=== PATIENT | female | born 1985 | race Two or more races ===

== ENCOUNTER 2021-02-01 08:33 | Outpatient (REF) | payer OTHER, SELFPAY ==
[2021-02-01 10:35] LABS: MANUAL DIFF FLAG NO
[2021-02-01 10:46] LABS: Basophils Absolute Auto 0.1 X10*3/uL (0.0-0.2); Basophils Percent Auto 0.9 % (0-2); Eosinophils Absolute Auto 0.3 X10*3/uL (0.0-0.4); Eosinophils Percent Auto 5.1 % (0-4); Hematocrit 36.6 % (37-47); Imm Gran Abs Auto 0.01 X10*3/uL (0.00-0.03); Imm Gran Pct Auto 0.2 % (0.0-0.4); Lymphocytes Absolute Auto 2.4 X10*3/uL (1.2-4.9); Lymphocytes Percent Auto 43.4 % (20-40); Mean Corpuscular HGB Conc 32.8 g/dl (31.0-35.0); Mean Corpuscular Hemoglobin 30.4 pg (27.0-33.0); Mean Corpuscular Volume 92.7 fL (80-98); Mean Platelet Volume 9.9 fL (9.4-12.3); Monocytes Absolute Auto 0.5 X10*3/uL (0.1-1.2); Monocytes Percent Auto 8.9 % (2-11); Neutrophils Absolute Auto 2.3 X10*3/uL (2.0-8.3); Neutrophils Percent Auto 41.5 % (45-73); Platelet Count 251 X10*3/uL (160-400); Red Blood Count 3.95 X10*6/uL (4.20-5.50); Red Cell Distribution Width 12.2 % (11.0-16.0); White Blood Count 5.5 X10*3/uL (4.8-10.8)
[2021-02-01 10:54] LABS: Estimated Average Glucose 88 mg/dL; Hemoglobin A1c % 4.7 %
[2021-02-01 11:20] LABS: Alanine Aminotransferase 21 U/L (0-31); Albumin Level 3.9 g/dL (3.5-5.0); Alkaline Phosphatase 57 U/L (39-117); Anion Gap 10 (12-20); Aspartate Amino Transferase 21 U/L (5-31); Bilirubin Total 0.3 mg/dL (0.0-1.0); Blood Urea Nitrogen 8 mg/dL (9-16); Calcium 8.8 mg/dL (8.4-10.2); Carbon Dioxide 27 mmol/L (22-29); Chloride 108 mmol/L (96-108); Cholesterol 187 mg/dL; Estimated Glomerular Filt Rate > 60; Glucose Fasting 89 mg/dL (60-99); HDL Cholesterol 44 mg/dL; LDL Cholesterol Calculated 130 mg/dl; Potassium 4.4 mmol/L (3.3-5.1); Sodium 141 mmol/L (135-145); Total Protein 6.6 g/dL (6.5-8.0); Triglycerides 67 mg/dL
[2021-02-01 11:41] LABS: TSH reflex Free T4 0.92 uIU/mL (0.32-4.0)
[2021-02-03 20:16] LABS: HPV mRNA E6/E7 rflx Not Detected (Not Detected)
== END 2021-02-01 08:34 | disposition home or self-care (01) ==
LOC: HO.LAB 08:33
PROVIDERS: Absent Provider Physician Assistant; PCP Physician Assistant; Visit Provider Obstetrics & Gynecology
DX: Z01.419 Encounter for gynecological examination (general) (routine) without abnormal findings (principal); Z13.1 Encounter for screening for diabetes mellitus; Z13.0 Encounter for screening for diseases of the blood and blood-forming organs and certain disorders involving the immune mechanism; Z13.220 Encounter for screening for lipoid disorders; Z13.29 Encounter for screening for other suspected endocrine disorder
CPT/HCPCS: 36415; 80053; 80061; 83036; 84443; 85025; 87624; 88142

== ENCOUNTER → 2022-02-03 08:30 | Outpatient (BNVA) | payer OTHER, BC, SELFPAY | PROVIDERS: Visit Provider Obstetrics & Gynecology | DX: Z13.89 Encounter for screening for other disorder (principal) ==

== ENCOUNTER 2022-02-21 08:30 | Outpatient (REF) | payer BC, SELFPAY ==
--- NOTE | ~2022-02-21 | US_ITS ---
EXAMINATION: US PELVIS CLINICAL INFORMATION: Right adnexal fullness COMPARISON: None TECHNIQUE: Ultrasound of the pelvis is performed using both transabdominal and transvaginal transducers along with Doppler. Transvaginal imaging is performed due to inadequate visualization transabdominally. FINDINGS: The uterus is anteverted and measures 9.3 x 2.9 x 5.7 cm in dimension. There is an IUD in the uterus in satisfactory position. The endometrium does not appear thickened measuring 0.4 cm. No focal uterine lesion is seen. The ovaries are normal-appearing. The right ovary measures 3.6 x 2.6 x 3 cm. The left ovary measures 2.6 x 1.3 x 2.4 cm. There is a 2.1 x 1.7 x 1.9 cm cyst or dominant follicle seen right ovary. There is no fluid in the pelvis. US/US pelvic and transvaginal IMPRESSION: IUD in the uterus satisfactory position. Normal-appearing ovaries.
== END 2022-02-21 08:31 | disposition home or self-care (01) ==
LOC: HO.HMGCX 08:30
PROVIDERS: Visit Provider Obstetrics & Gynecology
DX: N94.9 Unspecified condition associated with female genital organs and menstrual cycle (principal)
CPT/HCPCS: 76830; 76856

== ENCOUNTER → 2022-03-03 11:56 | Outpatient (BNVA) | payer BC, SELFPAY | PROVIDERS: Visit Provider Obstetrics & Gynecology | DX: Z13.89 Encounter for screening for other disorder (principal) ==

== ENCOUNTER → 2023-05-02 08:38 | Outpatient (BNVA) | payer BC, SELFPAY | PROVIDERS: PCP Physician Assistant; Visit Provider Obstetrics & Gynecology ==

== ENCOUNTER 2023-05-25 11:01 | Outpatient (REF) | payer BC, SELFPAY ==
--- NOTE | ~2023-05-25 | US_ITS ---
EXAMINATION: US PELVIS CLINICAL INFORMATION: Adnexal fullness LMP: None-IUD COMPARISON: Pelvic ultrasound 02/21/2022 TECHNIQUE: Ultrasound of the pelvis is performed using both transabdominal and transvaginal transducers along with Doppler. Transvaginal imaging is performed due to inadequate visualization transabdominally. FINDINGS: Uterus: The uterus is anteverted and measures 9.1 x 3.7 x 5.8 cm. No focal fibroid The endometrial thickness is 0.5 cm. The IUD appears in satisfactory position. Adnexa: Both ovaries are visualized. There is normal color flow to the adnexa. There is no ovarian torsion. There is no pelvic ascites or fluid collection. Right ovary measures 2.7 x 1.6 x 2.3 cm for a volume of 5.2 mL. The right ovary is normal in appearance. Left ovary measures 2.7 x 2.2 x 2.4 for a volume of 7.5 mL. A 2.1 x 1.7 x 2.1 cm simple dominant follicle is seen. No further follow-up is finding is recommended. US/US pelvic and transvaginal IMPRESSION: Normal pelvic ultrasound.
== END 2023-05-25 11:02 | disposition home or self-care (01) ==
LOC: HO.US 11:01
PROVIDERS: PCP Physician Assistant; Visit Provider Obstetrics & Gynecology
DX: N94.9 Unspecified condition associated with female genital organs and menstrual cycle (principal)
CPT/HCPCS: 76830; 76856

== ENCOUNTER 2023-06-07 15:41 | Outpatient (AMB) | payer BC, SELFPAY ==
[2023-06-07 15:45] VITALS: BP 118/70; BMI 28.8
--- NOTE | 2023-06-07 15:45 | A.OFFVIS_ITS ---
Intake Vital Signs 06/07/23 15:45 Height 5 ft Weight 147 lb 11.355 oz BMI 28.8 BP 118/70 Intake Visit Reasons: Ultra sound follow up Assistant Quality Manager Required: No Information Interpreted: non-clinical & clinical Accompanied by: Self / Same As Patient Allergies No Known Allergies [No Known Allergies*] Allergy (Verified 06/07/23 15:45) Is last menstrual period known: No HPI HPI Comments History of Present Illness Details Presenting for follow-up ultrasound regarding right adnexal fullness on pelvic exam. Ultrasound done showed the following: Uterus: The uterus is anteverted and measures 9.1 x 3.7 x 5.8 cm.? No focal fibroid The endometrial thickness is 0.5 cm. The IUD appears in satisfactory position. Adnexa: Both ovaries are visualized. There is normal color flow to the adnexa. There is no ovarian torsion.? There is no pelvic ascites or fluid collection. Right ovary measures 2.7 x 1.6 x 2.3 cm for a volume of 5.2 mL. The right ovary is normal in appearance. Left ovary measures 2.7 x 2.2 x 2.4 for a volume of 7.5 mL. A 2.1 x 1.7 x 2.1 cm simple dominant follicle is seen. No further follow-up is finding is recommended. [facility] Medical History Dysplasia of cervix, low grade (DES 1) Surgical History H/O LEEP History of ankle surgery History of section History of knee surgery Family History Father Cirrhosis Mother Ovarian cancer Diabetes Maternal Grandmother Heart disease CVD (cardiovascular disease) Maternal Aunt Breast cancer Social History Household Members: Spouse and Children Housing: House Alcohol intake: current Alcohol intake frequency: holidays/special occasions only Years Smoked: 20 e-Cigarette/Vaping Use: Currently Using Substance Use Type: Marijuana Current occupational status: employed Current occupation: [employer] Sexual orientation: Straight/Heterosexual Gender identity: Female Female Reproductive History Menstrual Age of Menarche: 9 control method: progestin IUCD Review of Systems Const All systems reviewed & are unremarkable except as noted in HPI and below Reports as per HPI and Reports no additional complaints GI Reports no additional complaints Reports no additional complaints Physical Exam Vital Signs: Last Vital Signs BP 118/70 06/07/23 15:45 BMI result Body Mass Index 28.8 Assessment & Plan Assessment & Plan (1) Adnexal fullness: Comment: On the right side Code(s): N94.9 - Unspecified condition associated with female genital organs and menstrual cycle Plan: Discussed with the patient the results of the ultrasound being unremarkable. The patient was reassured. All questions answered, the patient verbalized understanding Coding Level of Care Code Est Pt Level 3 (01937) Diagnoses Adnexal fullness N94.9
== END 2023-06-07 15:46 | disposition home or self-care (01) ==
LOC: HO.HWS 15:41
PROVIDERS: PCP Physician Assistant; Visit Provider Obstetrics & Gynecology
DX: N94.9 Unspecified condition associated with female genital organs and menstrual cycle (principal)
CPT/HCPCS: 99213

== ENCOUNTER → 2023-06-07 15:41 | Outpatient (BNVA) | payer BC, SELFPAY | PROVIDERS: PCP Physician Assistant; Visit Provider Obstetrics & Gynecology ==

== ENCOUNTER 2023-06-20 15:53 | Outpatient (AMB) | payer BC, SELFPAY ==
--- NOTE | 2023-06-20 15:54 | MHC.PC.OV ---
Vital Signs 06/20/23 15:55 Height 5 ft Weight 154 lb 6 oz BMI 30.1 BP 110/74 Blood Pressure Location Rt brachial Position Sitting Pulse 70 Pulse Source Pulse Oximeter Pulse Oximetry (%) 98 Intake Visit Reasons: PHY-Gastro Intake Note: pt is here for physical - requesting gastro referral Sampler First Required: No Accompanied by: Self / Same As Patient Allergies No Known Allergies [No Known Allergies*] Allergy (Verified 06/20/23 16:17) Medication List - Last Reconciled 06/20/23 by Andrea Samayoa PA-C levonorgestrel (Mirena) intrauterine multivitamin 1 tab PO DAILY Tobacco use date assessed: 06/20/23 Dental Screening Dental Screen Date: 06/20/23 Did you have a dental visit in the last 12 months?: Yes Did you have a dental problem in the last 6 months where you did not have access to dental care?: No Was dental information given to patient?: Patient has dentist HPI PHY-Gastro HPI Details Patient is a 37-year-old female here today for routine annual physical. Patient has a past medical history significant for MDD, ADHD. Patient followed by generator man and has recent reports of pelvic pain. Ultrasound of pelvic area without any abnormality. Also she reports a 9 month history of epigastric pain and sensitivity to palpation. Has tried [id number] antacids without much relief. She denies any association with foods. Has tried topical analgesics like lidocaine over her epigastrium though has not been affective. She denies any trauma to her epigastrium or chronic coughing. .. ADHD: Continues to have difficulties with concentration and focus in her personal life and during her work. She is somewhat interested in starting medication to help her focus. Also does suffer from major depressive disorder though feels that this has been stable. Not interested in cognitive behavioral therapy at this time. Vaccines: Up-to-date with COVID vaccine, tetanus vaccine and flu vaccine Mammogram: Mammogram has been ordered by her generator man. [facility] Medical History Dysplasia of cervix, low grade (DES 1) Surgical History H/O LEEP History of ankle surgery History of section History of knee surgery Family History Father Cirrhosis Mother Ovarian cancer Diabetes Maternal Grandmother Heart disease CVD (cardiovascular disease) Maternal Aunt Breast cancer Social History (Updated 06/20/23 @ 16:23 by Andrea Samayoa PA-C) Household Members: Spouse and Children Housing: House Alcohol intake: current Alcohol intake frequency: holidays/special occasions only Alcohol type: beer and wine Patient Tobacco Use Status: Current everyday Tobacco user Tobacco use type: Smokeless Tobacco (vape ) Years Smoked: 20 e-Cigarette/Vaping Use: Currently Using Substance Use Type: Marijuana Current occupational status: employed Current occupation: [employer] Sexual orientation: Straight/Heterosexual Gender identity: Female Cognitive needs: No Hearing needs: No Vision needs: No Female Reproductive History Menstrual Age of Menarche: 9 Questionnaire PHQ-9 Over the last 2 weeks, how often have you been bothered by any of the following problems? 1. Little interest or pleasure in doing things: several days 2. Feeling down, depressed, or hopeless: several days 3. Trouble falling or staying asleep, or sleeping too much: nearly every day 4. Feeling tired or having little energy: nearly every day 5. Poor appetite or overeating: nearly every day 6. Feeling bad about yourself - or that you are a failure or have let yourself or your family down: more than half the days 7. Trouble concentrating on things, such as reading the newspaper or watching television: nearly every day 8. Moving or speaking so slowly that other people could have noticed. Or the opposite - being so fidgety or restless that you have been moving around a lot more than usual: nearly every day 9. Thoughts that you would be better off or of hurting yourself in some way: not at all Total score: 19 Depression Screening Interpretation: Positive 12133 - PHQ-9 Billing: Yes Source: Developed by Drs. Brett Arevalo, Kinjal Johnson, David Collins and colleagues, with an educational cristóbal from [employer]. Thrive Questionnaire Date Thrive assessed: 06/20/23 I am a: Patient What is your living situation today?: I have a steady place to live Within the past 12 months, did the food you bought not last and you didn't have the money to get more?: Never true Within the past 12 months, did you worry whether your food would run out before you got money to buy more?: Never true Do you have trouble paying for medicines?: No Do you have trouble getting transportation to medical appointments?: No Do you have trouble paying your heating and electricity bill?: No Do you have trouble taking care of your child, family member or friend?: No Do you have trouble with day-to-day activities such as bathing, preparing meals, shopping, managing finances, etc.?: No Are you currently unemployed and looking for a job?: No Are you interested in more education?: No Please select the resources that you would like help with: None Currently or been in a relationship where the following occur: no concerns reported ANGELICA-7 AMB Questionnaire ANGELICA-7 Date ANGELICA - 7 assessed: 06/20/23 Feeling nervous, anxious, or on edge: 1 = Several days Not being able to stop or control worryin = More than half the days Worrying too much about different things: 3 = Nearly every day Trouble relaxin = Not at all Being so restless that it is hard to sit still: 3 = Nearly every day Becoming easily annoyed or irritable: 1 = Several days Feeling afraid as if something awful might happen: 0 = Not at all Total ANGELICA-7 score (0-4 normal; 5-9 mild; 10-14 moderate; 15-21 severe): 10 Source: Developed by Drs. Brett Arevalo, Kinjal Johnson, David Collins and colleagues, with an educational cristóbal from [employer]. ANGELICA-7 Assessment Billing ANEGLICA-7 Assessment Tool: ANGELICA-7 Assessment 08316 Review of Systems Const Denies body aches, Denies chills, Denies excessive sweating, Denies fatigue, Denies fever(s) and Denies headache(s) Eyes Denies blurry vision ENT Denies dysphagia, Denies vertigo, Denies dizziness, Denies headache(s), Denies hearing loss and Denies tinnitus Card Denies chest pain, Denies chest pain with activity, Denies syncope, Denies irregular heart rhythm and Denies dyspnea Resp Denies chest congestion, Denies cough, Denies hemoptysis, Denies dyspnea and Denies wheezing GI Denies abdominal pain, Denies melena, Denies hematochezia, Denies coffee ground emesis, Denies dysphagia, Denies diarrhea, Denies nausea and Denies vomiting Denies urinary frequency, Denies dysuria, Denies urinary hesitancy and Denies urinary urgency Musc Denies arthralgias, Denies limited range of motion, Denies muscle cramps and Denies muscle weakness Skin/Breast Denies rash and Denies skin ulcer Neuro Denies Abnormal speech present, Denies confusion, Denies vertigo, Denies dizziness, Denies syncope, Denies headache(s), Denies memory loss and Denies seizure-like activity Psych Denies anxiety, Denies confusion, Denies depression, Denies memory loss, Denies panic attacks and Denies paranoia Endo Denies excessive sweating, Denies fatigue, Denies flushing, Denies polydipsia and Denies polyuria Aller/Immun Denies wheezing Physical exam (Primary Care) Vital Signs: Last Vital Signs Pulse 70 06/20/23 15:55 BP 110/74 06/20/23 15:55 Pulse Ox 98 06/20/23 15:55 BMI result Body Mass Index 30.1 Tobacco/Smoking Status: Tobacco use Status Tobacco use date assessed 06/20/23 06/20/23 15:57 Patient Tobacco Use Status Current everyday Tobacco 06/20/23 16:23 Tobacco use type Smokeless Tobacco (vape ) 06/20/23 16:23 e-Cigarette/Vaping Use Currently Using 06/20/23 16:23 PHQ-9: PHQ-9 Score PHQ-9: Total score 19 06/20/23 16:20 Depression Screening Interpretation: Positive Thrive Assessment: Date of Thrive Assessment Date Thrive assessed 06/20/23 06/20/23 16:05 Currently or been in a relationship where the following occur: no concerns reported Const General: cooperative, comfortable, no acute distress, alert and awake; No confusion Orientation/consciousness: oriented to person, oriented to place, patient oriented x3 and No confusion HENMT Head: Yes normocephalic Ears: external ears normal and TM's normal bilaterally Face and sinus: No sinus tenderness Mouth: Normal oral and palatal mucosa present and tongue normal Teeth and gingiva: dentition normal and gingiva normal Throat: Yes posterior oropharynx normal, Yes tonsils normal and Yes uvula midline Eyes Conjunctivae: conjunctivae normal Sclerae: sclerae normal Pupils: Equal, round and reactive pupils present EOM: EOMs intact bilaterally Direct Ophthalmoscopy: No no photophobia Neck Neck: Yes no lymphadenopathy, No tender and Yes no JVD Thyroid: Thyroid normal Carotids: no bruits Chest Chest palpation & inspection: no tenderness Resp Effort & Inspection: normal respiratory effort, no audible wheezes, not labored and no stridor Auscultation: no crackles, no rales, no rhonchi and no wheezes Cardio Jugular venous distension: no JVD Rate: regular rate, not bradycardic and not tachycardic Rhythm: regular rhythm Bruits: no carotid bruits Peripheral pulses: Peripheral pulses 2+ throughout GI Other: TENDER TO LIGHT PALPATION OVER THE ENTIRE UPPER ABDOMINAL QUADRANT Inspection: Yes normal to inspection, No abdominal wall ecchymosis and No visible herniation Palpation (GI): Soft to palpation, Tenderness to palpation present (GI), no guarding, not rigid and No hepatosplenomegaly present Auscultation: normoactive bowel sounds General: Yes no CVA tenderness Back/Spine/Pelvis Back: no CVA tenderness and No back tenderness Cervical Spine: cervical ROM normal Thoracic/Lumbar Spine: thoracic and lumbar spine normal to inspection, straight leg raise negative bilaterally, No thoraco-lumbar ROM limited and No lumbar spinal tenderness Skin Lesions: no lesions Rashes: no rashes Wounds: no wounds Neuro General: oriented to person, oriented to place, patient oriented x3, CN's II-XI intact bilaterally and No confusion Cranial nerves: Yes Equal, round and reactive pupils present and Yes Normal accommodation reflex present Cognition (Neuro): normal cognition Speech: No Abnormal speech present Gait exam (Neuro): Normal gait present Motor exam (neuro): 5/5 motor strength present throughout Extrem Right upper extremity: full ROM; no cyanosis Left upper extremity: full ROM; no cyanosis Right lower extremity: no edema Left lower extremity: no edema Psych Appearance: grossly normal Mental Status: mental status grossly normal Affect: normal affect Attitude: cooperative Thought process: Normal thought process present Assessment and Plan Assessment & Plan (1) Annual physical exam: Code(s): Z00.00 - Encounter for general adult medical examination without abnormal findings (2) MDD (major depressive disorder), recurrent episode, mild: Code(s): F33.0 - Major depressive disorder, recurrent, mild Plan: Patient's PHQ-9 score positive for depression which has been existing condition for her. Not interested in speaking with a mental therapist at this time. She is interested in being treated for ADD (3) ADHD (attention deficit hyperactivity disorder), inattentive type: Code(s): F90.0 - Attention-deficit hyperactivity disorder, predominantly inattentive type Plan: Patient willing to trial Strattera for her ADHD disorder. Will follow-up in 4 weeks to evaluate effectiveness of medication (4) Epigastric abdominal pain: Code(s): R10.13 - Epigastric pain Plan: Patient reports and 9 month history of epigastric pain and discomfort even to touch. She has tried changing her diet and use of Prilosec without much relief. She is interested in getting an endoscopy. Will send for ultrasound of abdomen to evaluate for any gallbladder or evidence of gastritis Orders: Orders US abdomen complete 06/20/23 R10.13 - Epigastric pain Comprehensive [place]. Panel Fast 06/20/23 Z13.1 - Encounter for screening for diabetes mellitus Lipase 06/20/23 R10.13 - Epigastric pain Complete Blood Count no Diff 06/20/23 Z13.1 - Encounter for screening for diabetes mellitus Referrals Gastroenterology Referral R10.13 - Epigastric pain Medications: New nicotine (polacrilex) 2 mg buccal Q2H 15 days PRN 110 ea 0RF nicotine cravings F17.200 - Nicotine dependence, unspecified, uncomplicated atomoxetine (Strattera) 40 mg PO DAILY 30 days 30 caps 0RF F90.0 - Attention-deficit hyperactivity disorder, predominantly inattentive type Coding Level of Care Code Est Pt Prev Care 18-39y(09970) Diagnoses Annual physical exam Z00.00 MDD (major depressive disorder), recurrent episode, mild F33.0 ADHD (attention deficit hyperactivity disorder), inattentive type F90.0 Epigastric abdominal pain R10.13 Additional Codes ANGELICA-7 Assessment Billing - ANGELICA-7 Assessment Tool: ANGELICA-7 Assessment 40193 ([id number])
[2023-06-20 15:55] VITALS: BP 110/74; PULSE 70; O2SAT 98; BMI 30.1
== END 2023-06-20 16:51 | disposition home or self-care (01) ==
PROVIDERS: Visit Provider Physician Assistant
DX: Z00.00 Encounter for general adult medical examination without abnormal findings (principal); F33.0 Major depressive disorder, recurrent, mild; F90.0 Attention-deficit hyperactivity disorder, predominantly inattentive type; R10.13 Epigastric pain
CPT/HCPCS: 99395

== ENCOUNTER 2023-06-21 08:38 | Outpatient (REF) | payer SELFPAY ==
[2023-06-21 09:43] LABS: Hematocrit 36.6 % (37.0-47.0); Hemoglobin 12.1 g/dl (12.0-16.0); Mean Corpuscular HGB Conc 33.1 g/dl (31.0-35.0); Mean Corpuscular Hemoglobin 30.7 pg (27.0-33.0); Mean Corpuscular Volume 92.9 fL (80.0-98.0); Mean Platelet Volume 9.6 fL (9.4-12.3); Platelet Count 253 X10*3/uL (160-400); Red Blood Count 3.94 X10*6/uL (4.20-5.50); Red Cell Distribution Width 12.2 % (11.0-16.0); White Blood Count 4.5 X10*3/uL (4.8-10.8)
[2023-06-21 10:41] LABS: Alanine Aminotransferase 17 U/L (0-31); Albumin Level 3.7 g/dL (3.5-5.0); Alkaline Phosphatase 55 U/L (39-117); Anion Gap 10 (12-20); Aspartate Amino Transferase 17 U/L (5-31); Bilirubin Total 0.6 mg/dL (0.0-1.0); Blood Urea Nitrogen 8 mg/dL (9-16); Carbon Dioxide 26 mmol/L (22-29); Chloride 108 mmol/L (96-108); Estimated Glomerular Filt Rate > 60; Glucose Fasting 82 mg/dL (60-99); Lipase 17 U/L (8-78); Potassium 3.9 mmol/L (3.3-5.1); Sodium 140 mmol/L (135-145); Total Protein 6.7 g/dL (6.5-8.0)
== END 2023-06-21 08:39 | disposition home or self-care (01) ==
LOC: HO.LAB 08:38
PROVIDERS: PCP Physician Assistant; Visit Provider Physician Assistant
DX: Z13.1 Encounter for screening for diabetes mellitus (principal); R10.13 Epigastric pain
CPT/HCPCS: 36415; 80053; 83690; 85027

== ENCOUNTER 2023-07-18 08:57 | Outpatient (REF) | payer BC, SELFPAY ==
--- NOTE | ~2023-07-18 | US_ITS ---
EXAMINATION: US ABDOMEN COMPLETE CLINICAL INFORMATION: Epigastric pain. COMPARISON: None available. TECHNIQUE: Real-time imaging of the abdominal viscera. FINDINGS: PANCREAS: Normal. ABDOMINAL AORTA: The proximal, mid, and distal segments are normal in caliber. INFERIOR VENA CAVA: Visualized portions are normal. LIVER: The liver is normal in size. The liver contour is normal. Liver echotexture is increased. No focal hepatic lesion. There is no intrahepatic biliary duct dilatation seen. GALLBLADDER: Small 4 mm echogenic density adjacent to the gallbladder wall suggestive of a polyp. The gallbladder is physiologically distended without evidence of stones, sludge, wall thickening or pericholecystic fluid. COMMON BILE DUCT: Normal in caliber measuring 0.22 cm in diameter. RIGHT KIDNEY: Small 5 mm cyst in the midpole. No imaging follow-up recommended. Question small 2 mm renal stones in the midpole. No hydronephrosis The kidney measures 9.2 cm in maximum dimension. LEFT KIDNEY: 1.3 x 1.8 x 1.9 cm minimally complex cyst in the upper pole with septation. 0.9 x 1 1.2 x 1 cm simple cyst in the upper pole. No imaging follow-up recommended. Question 3 to 4 mm stone in the upper pole. No hydronephrosis. The kidney measures 9.5 cm in maximum dimension. SPLEEN: Normal. The spleen measures 9.7 cm in maximum dimension. FREE FLUID: None. US/US abdomen complete IMPRESSION: Echogenic liver probably representing fatty infiltration. Small gallbladder wall polyp. Question small bilateral renal stones.
== END 2023-07-18 08:58 | disposition home or self-care (01) ==
LOC: HO.HMGCX 08:57
PROVIDERS: PCP Physician Assistant; Visit Provider Physician Assistant
DX: R10.13 Epigastric pain (principal)
CPT/HCPCS: 76700

== ENCOUNTER 2023-07-25 14:15 | Outpatient (AMB) | payer BC, SELFPAY ==
--- NOTE | 2023-07-25 14:18 | A.OFFPC_ITS ---
Vital Signs 07/25/23 14:19 Height 5 ft Weight 146 lb 6 oz BMI 28.6 BP 100/58 L Blood Pressure Location Lt brachial Position Sitting Respiration 16 Pulse 80 Pulse Source Pulse Oximeter Pulse Oximetry (%) 99 Oxygen Delivery Method Room Air Intake Visit Reasons: f/u ADD Intake Note: Patient is here to follow up on ADD. Network Systems Analyst Required: No Allergies No Known Allergies [No Known Allergies*] Allergy (Verified 07/25/23 14:28) Medication List - Last Reconciled 07/25/23 by Andrea Samayoa PA-C atomoxetine (Strattera) 40 mg PO DAILY 30 days levonorgestrel (Mirena) intrauterine multivitamin 1 tab PO DAILY nicotine (polacrilex) 2 mg buccal Q2H PRN 15 days Tobacco use date assessed: 06/20/23 Dental Screening Dental Screen Date: 07/25/23 Did you have a dental visit in the last 12 months?: No Did you have a dental problem in the last 6 months where you did not have access to dental care?: No Was dental information given to patient?: Yes HPI f/u ADD HPI Details Patient is a 37-year-old female here today for a follow up visit. . Patient has a past medical history significant for MDD, ADHD. Epigastric pain: Also she reports a 9 month history of epigastric pain and sensitivity to palpation. Has tried [id number] antacids without much relief. She does admit some association with foods causing increase epigastric pain.. Has tried topical analgesics like lidocaine over her epigastrium though has not been affective. She denies any trauma to her epigastrium or chronic coughing. Has gotten ultrasound of abdomen which did show a gallbladder polyp and evidence consistent fatty liver disease. Has upcoming appointment with [facility]. PLAN: Will try PPI for signs symptoms consistent with gastritis. .. ADHD: Has started Strattera for ADD which she feels has been helping her with some concentration and focus on her job tasks. She unfortunately reports side effect of nausea which has been tolerable and likely related to GERD. [facility] Medical History Dysplasia of cervix, low grade (DES 1) Surgical History H/O LEEP History of section History of knee surgery History of ankle surgery Family History Father Cirrhosis Mother Ovarian cancer Diabetes Maternal Grandmother Heart disease CVD (cardiovascular disease) Maternal Aunt Breast cancer Social History Household Members: Spouse and Children Housing: House Alcohol intake: current Alcohol intake frequency: holidays/special occasions only Alcohol type: beer and wine Patient Tobacco Use Status: Current everyday Tobacco user Tobacco use type: Smokeless Tobacco (vape ) Years Smoked: 20 e-Cigarette/Vaping Use: Currently Using Substance Use Type: Marijuana Current occupational status: employed Current occupation: [employer] Sexual orientation: Straight/Heterosexual Gender identity: Female Cognitive needs: No Hearing needs: No Vision needs: No Female Reproductive History Menstrual Age of Menarche: 9 Questionnaire Thrive Questionnaire Date Thrive assessed: 06/20/23 ANGELICA-7 AMB Questionnaire ANGELICA-7 Date ANGELICA - 7 assessed: 06/20/23 Source: Developed by Drs. Brett Arevalo, Kinjal Johnson, David Collins and colleagues, with an educational cristóbal from [employer]. Review of Systems Const Denies headache(s) Eyes Denies loss of vision ENT Denies vertigo, Denies dizziness, Denies headache(s) and Denies sore throat Card Denies chest pain, Denies leg edema and Denies lightheadedness Resp Denies cough, Denies hemoptysis and Denies wheezing GI Details: + epigastric pain Reports abdominal pain, Denies melena, Denies constipation, Denies diarrhea, Reports nausea and Denies vomiting Denies urinary frequency, Denies dysuria and Denies urinary urgency Musc Denies arthralgias, Denies joint swelling, Denies numbness and Denies tingling Neuro Denies Abnormal speech present, Denies behavioral changes, Denies vertigo, D enies dizziness, Denies headache(s), Denies loss of vision, Denies memory loss, Denies numbness and Denies tingling Psych Denies anxiety, Denies behavioral changes, Denies depression, Denies memory loss and Denies panic attacks [place]coe/Lymph Denies easy bleeding and Denies easy bruising Aller/Immun Denies wheezing Physical exam (Primary Care) Vital Signs: Last Vital Signs Pulse 80 07/25/23 14:19 Resp 16 07/25/23 14:19 BP 100/58 L 07/25/23 14:19 Pulse Ox 99 07/25/23 14:19 Oxygen Delivery Method Room Air 07/25/23 14:19 BMI result Body Mass Index 28.6 Tobacco/Smoking Status: Tobacco use Status Tobacco use date assessed 06/20/23 07/25/23 14:18 Patient Tobacco Use Status Current everyday Tobacco 07/25/23 14:18 Tobacco use type Smokeless Tobacco (vape ) 07/25/23 14:18 e-Cigarette/Vaping Use Currently Using 07/25/23 14:18 Thrive Assessment: Date of Thrive Assessment Date Thrive assessed 06/20/23 07/25/23 14:18 Const General: healthy appearing, no acute distress, alert and awake Nutritional Appearance: well nourished Orientation/consciousness: oriented to person, oriented to place and oriented to time HENMT Ears: TM's normal bilaterally General nose exam: Normal nasal mucous membranes and turbinates present Eyes Conjunctivae: conjunctivae normal Sclerae: sclerae normal Pupils: Equal, round and reactive pupils present Neck Neck: Yes no lymphadenopathy and Yes no JVD Thyroid: Thyroid normal Carotids: no bruits Resp Effort & Inspection: normal respiratory effort and not tachypneic Auscultation: no crackles, no rales, no rhonchi and no wheezes Cardio Rate: regular rate Rhythm: regular rhythm Heart sounds: no murmurs and normal S1 and S2 GI Palpation (GI): Soft to palpation, nontender, no hepatomegaly and no splenomegaly Auscultation: normal bowel sounds Skin General skin exam: no rashes or lesions noted and dry skin Neuro General: oriented to person, oriented to place and oriented to time Cranial nerves: Yes Equal, round and reactive pupils present Speech: No Abnormal speech present Gait exam (Neuro): Normal gait present Motor exam (neuro): no tremor noted Extrem Right upper extremity: full ROM Left upper extremity: full ROM Right lower extremity: full ROM; no edema Left lower extremity: full ROM; no edema Psych Mental Status: mental status grossly normal Speech and movement: Normal speech and movement present Affect: normal affect Attitude: cooperative Thought process: Normal thought process present Assessment and Plan Assessment & Plan (1) ADHD (attention deficit hyperactivity disorder), inattentive type: Code(s): F90.0 - Attention-deficit hyperactivity disorder, predominantly inattentive type Plan: Patient has been started on 40 mg of Strattera which has been somewhat effective for her attention and focus. Does report some side effect of nausea after she takes the medication. She is willing to increase dose of Strattera for better results thus will send in 80 mg Strattera. Patient will follow-up via phone or portal on effectiveness of the medication. (2) Epigastric abdominal pain: Code(s): R10.13 - Epigastric pain Plan: Patient reports and 9 month history of epigastric pain and discomfort even to touch. She does report some associations of her epigastric pain getting worse with food. Will try PPI therapy She is interested in getting an endoscopy and has upcoming appointment with gastroenterology. Ultrasound of abdomen did show a gallbladder wall polyp and a few simple kidneys cyst. (3) GERD (gastroesophageal reflux disease): Code(s): K21.9 - Gastro-esophageal reflux disease without esophagitis Qualifiers: Esophagitis presence: without esophagitis Qualified Code(s): K21.9 - Gastro-esophageal reflux disease without esophagitis Plan: As above patient signs symptoms somewhat consistent with gastritis. Again will trial PPI therapy. Advised on reducing gastric irritant foods in her diet. Medications: New omeprazole 20 mg PO DAILY 14 days 14 caps 0RF K21.9 - Gastro-esophageal reflux disease without esophagitis atomoxetine (Strattera) 80 mg PO DAILY 30 days 30 caps 1RF F90.0 - Attention- deficit hyperactivity disorder, predominantly inattentive type Discontinued atomoxetine (Strattera) Discontinued Reason: Doctor's Order 40 mg PO DAILY 30 days 30 caps 0RF F90.0 - Attention-deficit hyperactivity disorder, predominantly inattentive type Coding Level of Care Code Est Pt Level 4 (66026) Diagnoses ADHD (attention deficit hyperactivity disorder), inattentive type F90.0 Epigastric abdominal pain R10.13 Gastroesophageal reflux disease without esophagitis K21.9 Esophagitis presence: without esophagitis
[2023-07-25 14:19] VITALS: BP 100/58; PULSE 80; RESP 16; O2SAT 99; BMI 28.6
== END 2023-07-25 14:48 | disposition home or self-care (01) ==
PROVIDERS: PCP Physician Assistant; Visit Provider Physician Assistant
DX: F90.0 Attention-deficit hyperactivity disorder, predominantly inattentive type (principal); R10.13 Epigastric pain; K21.9 Gastro-esophageal reflux disease without esophagitis
CPT/HCPCS: 99214

== ENCOUNTER 2023-08-08 14:59 | Outpatient (AMB) | payer BC, SELFPAY ==
--- NOTE | 2023-08-08 15:03 | MHC.OFFVIS ---
Intake Vital Signs 08/08/23 15:05 Height 5 ft Weight 147 lb 11.355 oz BMI 28.8 BP 118/67 Blood Pressure Location Lt brachial Position Sitting Pulse 82 Intake Visit Reasons: Epigastric pain Intake Note: Britta presents in the office as a new patient for epigastric pains. CC: She has been dealing with pains in her abdomen, she has been having a feeling klike air and bloating in her stomach. Her belches have been gassy and it keeps getting worse. She has always had stomach pains but it has gotten worst over the past year. She has no appetite because of this. She has irregular BMs - sometimes she will have constipation and some day she will have diarrhea. Allergies No Known Allergies [No Known Allergies*] Allergy (Verified 08/08/23 15:06) HPI Epigastric pain HPI Details 38-year-old female with past medical history of an MDD, ADHD, epigastric discomfort are and GERD is here for initial consultation. Patient was sent to us by her PCP. Patient reports that she has been dealing with epigastric discomfort postprandially. Patient reports that no matter what she eats she will have epigastric pain and bloating. Patient is reporting that she has been taking omeprazole, however states that it was not helping her so she was not taking it. Patient states that she is not moving her bowels well. [facility] Medical History GERD (gastroesophageal reflux disease) Fatty liver Vapes nicotine containing substance Migraine Depression ADHD Dysplasia of cervix, low grade (DES 1) Surgical History H/O LEEP History of section History of knee surgery History of ankle surgery Family History Father Cirrhosis Mother Ovarian cancer Diabetes Maternal Grandmother Heart disease CVD (cardiovascular disease) Maternal Aunt Breast cancer Social History Household Members: Spouse and Children Housing: House Alcohol intake: current Alcohol intake frequency: a few times a month Alcohol type: beer and wine Patient Tobacco Use Status: Current everyday Tobacco user Tobacco use type: Smokeless Tobacco (vape ) Years Smoked: 20 e-Cigarette/Vaping Use: Currently Using Substance Use Type: Marijuana Current occupational status: employed Current occupation: [employer] Sexual orientation: Straight/Heterosexual Gender identity: Female Cognitive needs: No Hearing needs: No Vision needs: No Female Reproductive History Menstrual Age of Menarche: 9 Review of Systems Const Denies weight gain and Denies weight loss ENT Reports no additional complaints, Denies dysphagia and Denies odynophagia Card Reports no additional complaints Resp Reports no additional complaints GI Reports abdominal pain (epigastric), Denies belching, Denies melena, Reports bloating, Denies change in bowel habits, Reports constipation, Denies dysphagia, Denies excessive flatus, Denies dyspepsia, Reports heartburn, Denies diarrhea, Reports loose stools, Denies nausea, Denies odynophagia and Denies vomiting Reports no additional complaints Musc Reports no additional complaints Neuro Reports no additional complaints Psych Reports no additional complaints Endo Reports no additional complaints Physical Exam Vital Signs: Last Vital Signs Pulse 82 08/08/23 15:05 BP 118/67 08/08/23 15:05 BMI result Body Mass Index 28.8 Const General: healthy appearing, no acute distress and well developed Nutritional Appearance: well nourished Orientation/consciousness: patient oriented x3 HEENT Head: Yes normal to inspection, Yes normocephalic and Yes atraumatic Face and sinus: Yes normal facial exam Mouth: Normal oral and palatal mucosa present Throat: Yes posterior oropharynx normal, Yes tonsils normal and Yes uvula midline Eyes General: appearance normal, both eyes and all related structures Neck Neck: Yes normal visual inspection, Yes full ROM and Yes trachea midline Thyroid: Thyroid normal Resp Effort & Inspection: normal respiratory effort, able to speak in complete sentences, no tracheal deviation and symmetric chest movement Auscultation: clear to auscultation bilaterally Cardio Rate: regular rate Heart sounds: S1 normal heart sound present and S2 normal heart sound present GI Inspection: Yes normal to inspection and No distended Palpation (GI): Soft to palpation, not firm, nontender and No hepatosplenomegaly present Auscultation: normal bowel sounds General: Yes no CVA tenderness Back/Spine/Pelvis Back: no CVA tenderness Skin General skin exam: elasticity normal, turgor normal and dry skin Neuro General: patient oriented x3 Psych Appearance: grossly normal Mental Status: mental status grossly normal Results Reviewed Results Reviewed: ABDOMINAL ULTRASOUND 07/18/2023 FINDINGS: PANCREAS: Normal. ABDOMINAL AORTA: The proximal, mid, and distal segments are normal in caliber. INFERIOR VENA CAVA: Visualized portions are normal. LIVER: The liver is normal in size. The liver contour is normal. Liver echotexture is increased. No focal hepatic lesion. There is no intrahepatic biliary duct dilatation seen. GALLBLADDER: Small 4 mm echogenic density adjacent to the gallbladder wall suggestive of a polyp. The gallbladder is physiologically distended without evidence of stones, sludge, wall thickening or pericholecystic fluid. COMMON BILE DUCT: Normal in caliber measuring 0.22 cm in diameter. RIGHT KIDNEY: Small 5 mm cyst in the midpole. No imaging follow-up recommended. Question small 2 mm renal stones in the midpole. No hydronephrosis The kidney measures 9.2 cm in maximum dimension. LEFT KIDNEY: 1.3 x 1.8 x 1.9 cm minimally complex cyst in the upper pole with septation. 0.9 x 1 1.2 x 1 cm simple cyst in the upper pole. No imaging follow-up recommended. Question 3 to 4 mm stone in the upper pole. No hydronephrosis. The kidney measures 9.5 cm in maximum dimension. SPLEEN: Normal. The spleen measures 9.7 cm in maximum dimension. FREE FLUID: None. US/US abdomen complete IMPRESSION: Echogenic liver probably representing fatty infiltration. Small gallbladder wall polyp. Question small bilateral renal stones. Assessment & Plan Assessment & Plan (1) GERD (gastroesophageal reflux disease): Code(s): K21.9 - Gastro-esophageal reflux disease without esophagitis Qualifiers: Esophagitis presence: without esophagitis Qualified Code(s): K21.9 - Gastro-esophageal reflux disease without esophagitis (2) Epigastric abdominal pain: Code(s): R10.13 - Epigastric pain (3) Constipation: Code(s): K59.00 - Constipation, unspecified Qualifiers: Constipation type: slow transit constipation Qualified Code(s): K59.01 - Slow transit constipation Plan Check for H pylori in treat empirically if positive. Will check transglutaminase to rule out celiac disease. Discussed with patient the importance of avoiding dietary triggers in late night snacking. Patient will start taking famotidine at bedtime. Will return for H pylori testing in the office. Low FODMAP diet discussed with patient as well. Will check vitamin-D and will order replacement if low. Patient will be sent for upper endoscopy to rule out esophagitis, gastritis, gastric or peptic ulcers, H pylori, Martin's. I will see her in the office after the procedure, sooner on as needed basis. Patient is agreeable to this plan and verbalizes understanding of instructions. She was given the opportunity to ask questions and all questions answered. Thank you for allowing me to participate in her care Orders: Orders H Pylori Breath Test 08/08/23 Transglutaminase IgA 08/08/23 R10.9 - Unspecified abdominal pain Transglutaminase Ab IgG 08/08/23 R10.9 - Unspecified abdominal pain Vitamin D 25-OH (D2 and D3) 08/08/23 E55.9 - Vitamin D deficiency, unspecified Medications: New polyethylene glycol 3350 (Miralax) 17 grams PO DAILY 510 grams 2RF famotidine (Pepcid) 20 mg PO BEDTIME 30 tabs 3RF K21.9 - Gastro-esophageal reflux disease without esophagitis Coding Level of Care Code New Pt Level 4 (25283) Diagnoses Gastroesophageal reflux disease without esophagitis K21.9 Esophagitis presence: without esophagitis Epigastric abdominal pain R10.13 Slow transit constipation K59.01 Constipation type: slow transit constipation Time Spent (min) 45 Comment 30 minutes spent with patient and additional 15 minutes spent reviewing her records
[2023-08-08 15:05] VITALS: BP 118/67; PULSE 82; BMI 28.8
== END 2023-08-08 15:35 | disposition home or self-care (01) ==
PROVIDERS: PCP Physician Assistant; Visit Provider Nurse Practitioner Family
DX: K21.9 Gastro-esophageal reflux disease without esophagitis (principal); R10.13 Epigastric pain; K59.01 Slow transit constipation
CPT/HCPCS: 99204

== ENCOUNTER → 2023-08-08 14:59 | Outpatient (BNVA) | payer BC, SELFPAY | PROVIDERS: PCP Physician Assistant; Visit Provider Nurse Practitioner Family ==

== ENCOUNTER 2023-08-09 09:10 | Outpatient (REF) | payer BC, SELFPAY ==
[2023-08-10 14:36] LABS: H Pylori Breath Test Positive (Negative)
== END 2023-08-09 09:11 | disposition home or self-care (01) ==
LOC: HO.LNP 09:10
PROVIDERS: PCP Physician Assistant; Visit Provider Nurse Practitioner Family
DX: Z11.2 Encounter for screening for other bacterial diseases (principal)
CPT/HCPCS: 83013; 99211

== ENCOUNTER 2023-08-29 14:58 | Day surgery (SDC) | payer BC, SELFPAY ==
[2023-08-24 19:56] VITALS: BMI 27.7
--- NOTE | 2023-08-28 10:57 | HO.ANESPROP2 ---
Documented by User: Ruth Padilla NP 08/28/23 10:59 HPI - Anesthesia Eval Consult details Narrative: 38yo F for Upper Endoscopy PMFSH Active Problems Active Problems: All Active Problems (Updated 08/24/23 @ 19:56 by Khloe Valencia RN) GERD (gastroesophageal reflux disease) (Acute) Epigastric abdominal pain (Acute) MDD (major depressive disorder), recurrent episode, mild (Acute) IUD strings lost (Acute) Adnexal fullness (Acute) Well woman exam (Acute) ADHD (attention deficit hyperactivity disorder), inattentive type (Acute) Screening for iron deficiency anemia (Acute) Screening for hypothyroidism (Acute) Screening for hypercholesterolemia (Acute) Screening for diabetes mellitus (DM) (Acute) Annual physical exam (Acute) Past Medical History Medical History GERD (gastroesophageal reflux disease) Fatty liver Vapes nicotine containing substance Migraine Depression ADHD Dysplasia of cervix, low grade (DES 1) Family History Family History Father Cirrhosis Mother Ovarian cancer Diabetes Maternal Grandmother Heart disease CVD (cardiovascular disease) Maternal Aunt Breast cancer Surgical History Surgical History H/O LEEP History of section History of knee surgery History of ankle surgery Social History Social History Household Members: Spouse and Children Housing: House Alcohol intake: current Alcohol intake frequency: a few times a month Alcohol type: beer and wine Patient Tobacco Use Status: Current everyday Tobacco user Tobacco use type: Smokeless Tobacco (vape ) Years Smoked: 20 Smoked in Last 30 Days: Yes e-Cigarette/Vaping Use: Currently Using Use of substances other than those prescribed or required for medical reasons: Yes Substance Use Type: Marijuana Substance Use Frequency: Daily Are you DNR?: No Advance Directives: No Advance Directives Information Provided: Yes Advance Directives on File: No Recently lost weight without trying: No Nutrition Risks: No Nutritional Risk Patient : No Current occupational status: employed Current occupation: [employer] Sexual orientation: Straight/Heterosexual Gender identity: Female Cognitive needs: No Hearing needs: No Vision needs: No Meds Allergies Allergy/AdvReac Type Severity Reaction Status Date / Time No Known Allergies Allergy Verified 08/08/23 15:06 [No Known Allergies*] Home Medications Medication Instructions Recorded Confirmed Last Taken Type levonorgestrel 21 mcg/24 hours (8 1 device intrauterine CONT 02/01/21 08/24/23 Unknown History yrs) 52 mg intrauterine device (Mirena) multivitamin 1 tab PO DAILY 02/01/21 08/24/23 Unknown History Exam Exam Date and Time: August 28, 2023 1057 Height,Weight and Vital Signs: Height 5 ft Weight 64.41 kg Pertinent Lab Results Pertinent Lab Results: Laboratory Tests 06/21/23 08:48 WBC 4.5 L Hgb 12.1 Hct 36.6 L Plt Count 253 Sodium 140 Potassium 3.9 Chloride 108 Carbon Dioxide 26 BUN 8 L Creatinine 0.93 Assessment and Plan Assessment Anesthesia Assessment: Chart Reviewed Documented by User: Angie Joseph MD 08/29/23 17:24 [facility] Active Problems Active Problems: All Active Problems (Updated 08/29/23 @ 16:35 by Angie Joseph MD) GERD (gastroesophageal reflux disease) (Acute) Epigastric abdominal pain (Acute) MDD (major depressive disorder), recurrent episode, mild (Acute) IUD strings lost (Acute) Adnexal fullness (Acute) Well woman exam (Acute) ADHD (attention deficit hyperactivity disorder), inattentive type (Acute) Screening for iron deficiency anemia (Acute) Screening for hypothyroidism (Acute) Screening for hypercholesterolemia (Acute) Screening for diabetes mellitus (DM) (Acute) Annual physical exam (Acute) Vaping - last earlier today Marijuana use- last yesterday Past Medical History Medical History GERD (gastroesophageal reflux disease) Fatty liver Vapes nicotine containing substance Migraine Depression ADHD Dysplasia of cervix, low grade (DES 1) Family History Family History Father Cirrhosis Mother Ovarian cancer Diabetes Maternal Grandmother Heart disease CVD (cardiovascular disease) Maternal Aunt Breast cancer Family history of problems with anesthesia: No Surgical History Surgical History H/O LEEP History of section History of knee surgery History of ankle surgery History of Problems with Anesthesia: No Social History Social History Household Members: Spouse and Children Housing: House Alcohol intake: current Alcohol intake frequency: a few times a month Alcohol type: beer and wine Patient Tobacco Use Status: Current everyday Tobacco user Tobacco use type: Smokeless Tobacco (vape ) Years Smoked: 20 Smoked in Last 30 Days: Yes e-Cigarette/Vaping Use: Currently Using Use of substances other than those prescribed or required for medical reasons: Yes Substance Use Type: Marijuana Substance Use Frequency: Daily Are you DNR?: No Advance Directives: No Advance Directives Information Provided: Yes Advance Directives on File: No Recently lost weight without trying: No Nutrition Risks: No Nutritional Risk Patient : No Current occupational status: employed Current occupation: [employer] Sexual orientation: Straight/Heterosexual Gender identity: Female Cognitive needs: No Hearing needs: No Vision needs: No Meds Allergies Allergy/AdvReac Type Severity Reaction Status Date / Time No Known Allergies Allergy Verified 08/08/23 15:06 [No Known Allergies*] Home Medications Medication Instructions Recorded Confirmed Last Taken Type levonorgestrel 21 mcg/24 hours (8 1 device intrauterine CONT 02/01/21 08/24/23 Unknown History yrs) 52 mg intrauterine device (Mirena) multivitamin 1 tab PO DAILY 02/01/21 08/24/23 Unknown History Exam Height,Weight and Vital Signs: Height 5 ft Weight 64.41 kg Vital Signs Temp Pulse Resp BP Pulse Ox O2 Del Method 08/29/23 16:00 99 F 86 16 96/54 L 100 Room Air Airway Mallampati Class: II TM Dist: >3cm Neck ROM: Full Loose/Missing/Broken Teeth: Yes (Chipped tooth top front, broken teeth bottom back right and left) Heart: RRR Lungs: CTAB Assessment and Plan Assessment Anesthesia Assessment: Anesthesia Plan Discussed Final Anesthetic Review Family History of Problems with Anesthesia: No History of Problems with Anesthesia: No NPO: Yes ASA Class: II Final Preanesthetic Review: No Changes in Pt Med Stat, Meds/Allgs Chart Reviewed, Consent Obtained/Reviewed and Anes Risks/Benef Reviewed Patient Risk: Intermediate Procedure Risk: Low Assessment/Block/Sedation in SS: Assess/Block/Sedation-SS Anesthetic Plan Anesthetic Plan: MAC: Disposition: Standard PACU
[2023-08-29 15:46] VITALS: BMI 27.7
--- NOTE | 2023-08-29 15:52 | P.OP_ITS ---
Operative Note Operative Note Date of Service: 08/29/23 Narrative: Procedure: Esophagogastroduodenoscopy Endoscopist: Ana Steven MD Indication: Epigastric pain, N,V Anesthesia Provider: Dr Bora Smith Anesthesia Type: MAC ?? EGD Procedure:?? The procedure, indications, preparation and potential complications were reviewed with the patient, who indicated understanding and gave written informed consent to proceed. A physical exam was performed. The endoscope was introduced through the mouth, and advanced to the second part of duodenum. The mucosa was carefully examined on slow withdrawal of the endoscope. The patient tolerated the procedure well. There were no immediate complications.? ? EGD Findings:? * Esophagus:? A couple of erosions noted at the GE junction compatible with grade A esophagitis. The Z line was at 33 cm. Middle and lower esophagus forceps biopsies were obtained to rule out eosinophilic esophagitis. * Stomach:? Erythema and cobblestone appearance of fundus and body. Retroflexion performed in the fundus. Cold forceps random gastric biopsies were taken to rule out H Pylori infection. * Duodenum:? Erythema and erosions were noted in the duodenal bulb. Cold forceps biopsies were taken from duodenal bulb and second portion of the duodenum to rule out celiac sprue. ? EGD Impressions:? * Grade A esophagitis (biopsy) * Gastritis (biopsy) * Duodenitis (biopsy) ?? Recommendations:?? * Follow biopsy results. Our office will call or send a letter with results within 7-10 days. * Continue PPI therapy. * If H pylori +, patient will be prescribed eradication therapy followed by test of cure. * Avoid NSAIDs and smoking. Above has been reviewed with the patient.
--- NOTE | 2023-08-29 15:52 | MHC.SHP ---
Pre-Procedural Eval Section A Date of Service: 08/29/23 The History & Physical has been completed within 30 days and I have reviewed it.: Yes Section B Chief Complaint: Epigastric pain Allergies: Allergies Allergy/AdvReac Type Severity Reaction Status Date / Time No Known Allergies Allergy Verified 08/08/23 15:06 [No Known Allergies*] Plan Diagnosis/Plan: Unchanged I have reviewed the history and physical and performed a pertinent physical examination on my patient. No changes have occurred unless specified. Time Spent With Patient Time: Total time managing care of this patient today ____ minutes.
[2023-08-29 16:00] VITALS: BP 96/54; PULSE 86; RESP 16; TEMP 37.2; O2SAT 100
[2023-08-29 17:22] LABS: UPreg QC Valid YES; Urine Pregnancy NEGATIVE (NEGATIVE)
[2023-08-29] MEDS: Lactated Ringers 1,000 ML 100 ML IVCONT (17:25)
[2023-08-29 17:57] VITALS: BP 105/64; PULSE 88; RESP 17; TEMP 36.9; O2SAT 99
[2023-08-29 18:12] VITALS: BP 107/70; PULSE 76; RESP 16; TEMP 36.9; O2SAT 99
[2023-08-29 18:27] VITALS: BP 110/74; PULSE 79; RESP 14; TEMP 36.8; O2SAT 99
== END 2023-08-29 18:35 | disposition home or self-care (01) ==
PROVIDERS: Nurse Practitioner; PCP Physician Assistant; Visit Provider Internal Medicine
PROC: 0DJ08ZZ Inspection of Upper Intestinal Tract, Via Natural or Artificial Opening Endoscopic (ICD-10-PCS; CPT 43235; principal; 2023-08-29 16:00)
DX: R10.13 Epigastric pain (principal); K29.50 Unspecified chronic gastritis without bleeding; B96.81 Helicobacter pylori [H. pylori] as the cause of diseases classified elsewhere; K21.9 Gastro-esophageal reflux disease without esophagitis; K59.01 Slow transit constipation; K20.80 Other esophagitis without bleeding; K29.80 Duodenitis without bleeding; K76.0 Fatty (change of) liver, not elsewhere classified; F32.A Depression, unspecified; F90.9 Attention-deficit hyperactivity disorder, unspecified type; E55.9 Vitamin D deficiency, unspecified; Z79.899 Other long term (current) drug therapy; F17.290 Nicotine dependence, other tobacco product, uncomplicated; F12.90 Cannabis use, unspecified, uncomplicated
CPT/HCPCS: 43239; 81025; 88305; 88342; J3010

== ENCOUNTER → 2023-08-29 14:58 | Outpatient (BNV) | payer BC, SELFPAY | PROVIDERS: PCP Physician Assistant; Visit Provider Internal Medicine | DX: K20.90 Esophagitis, unspecified without bleeding (principal); K29.70 Gastritis, unspecified, without bleeding; K29.80 Duodenitis without bleeding | CPT/HCPCS: 43239 ==

== ENCOUNTER 2023-09-12 10:39 | Outpatient (AMB) | payer BC, SELFPAY ==
--- NOTE | 2023-09-12 10:48 | A.OFFVIS_ITS ---
Intake Vital Signs 09/12/23 10:49 Height 5 ft Weight 140 lb 3.424 oz BMI 27.4 BP 124/62 Blood Pressure Location Rt brachial Position Sitting Pulse 98 Pulse Source Pulse Oximeter Pulse Oximetry (%) 100 Oxygen Delivery Method Room Air Intake Visit Reasons: S/p egd Maurizio Intake Note: Pt presents to the office today for s/p EGD. Pt states she is having n ausea/vomiting/ and fatigue but she hopes it is due to the antibiotics. Allergies No Known Allergies [No Known Allergies*] Allergy (Verified 09/12/23 10:50) HPI S/p egd Maurizio HPI Details LAST VISIT GERD (gastroesophageal reflux disease) Epigastric abdominal pain Constipation Plan Check for H pylori in treat empirically if positive. Will check transglutaminase to rule out celiac disease. Discussed with patient the importance of avoiding dietary triggers in late night snacking. Patient will start taking famotidine at bedtime. Will return for H pylori testing in the office. Low FODMAP diet disc ussed with patient as well. Will check vitamin-D and will order replacement if low. Patient will be sent for upper endoscopy to rule out esophagitis, gastritis, gastric or peptic ulcers, H pylori, Martin's. I will see her in the office after the procedure, sooner on as needed basis. Patient is agreeable to this plan and verbalizes understanding of instructions. She was given the opportunity to ask questions and all questions answered. ? Thank you for allowing me to participate in her care Orders Orders H Pylori Breath Test 08/08/23 Transglutaminase IgA 08/08/23 R10.9 Transglutaminase Ab IgG 08/08/23 R10.9 Vitamin D 25-OH (D2 and D3) 08/08/23 E55.9 Medications New polyethylene glycol 3350 (Miralax) 17 grams PO DAILY 510 grams 2RF famotidine (Pepcid) 20 mg PO BEDTIME 30 tabs 3RF K21.9 UPPER ENDOSCOPY EGD Findings:? * Esophagus:? A couple of erosions noted at the GE junction compatible with grade A esophagitis. The Z line was at 33 cm. Middle and lower esophagus forceps biopsies were obtained to rule out eosinophilic esophagitis. * Stomach:? Erythema and cobblestone appearance of fundus and body. Retroflexion performed in the fundus. Cold forceps random gastric biopsies were taken to rule out H Pylori infection. * Duodenum:? Erythema and erosions were noted in the duodenal bulb. Cold forceps biopsies were taken from duodenal bulb and second portion of the duodenum to rule out celiac sprue. ? EGD Impressions:? * Grade A esophagitis (biopsy) * Gastritis (biopsy) * Duodenitis (biopsy)?? Recommendations:?? * Follow biopsy results. Our office will call or send a letter with results within 7-10 days. * Continue PPI therapy. * If H pylori +, patient will be prescribed eradication therapy followed by test of cure. * Avoid NSAIDs and smoking. PATHOLOGY RESULTS Addendum #1 (B): Immunostain for H pylori is positiv e with appropriate control. Electronically Signed By: Jane Lynch 09/07/23 0919 Diagnosis A. Duodenum, biopsy: Duodenal mucosa with preserved villi and no specific change. B. Stomach, random, biopsy: Chronic Helicobacter gastritis with mild activity; negative for intestinal metaplasia and dysplasia (see comment). C. Esophagus, lower, biopsy: Squamous mucosa with hyperplasia and focal intraepithelial eosinophils (up to 4 per high-power field) consisten t with esophagitis; no columnar mucosa present. D. Esophagus, middle, biopsy: Squamous mucosa with no specific change; no columnar mucosa present. Comment: (B): Confirmatory H pylori stain pending ; addendum to follow TODAY'S VISIT Patient is here today for follow-up and to discuss upper endoscopy results. Last visit patient tested positive for H pylori. Treatment with quadruple therapy was prescribed, however patient admits that she was unable to finish therapy due to her GI symptoms. Patient had upper endoscopy that biopsy showed positive H pylori gastritis. Patient has started quadruple therapy again. She will be done on Monday. Patient was given script for Zofran and states that she feels like it is helpful. Patient does admit that she ran out of Zofran yesterday. Patient reports feeling nauseous, denies any vomiting. Patient is currently trying to also avoid dietary triggers. Eating small amounts and more often. Patient does not have much of appetite PFSH Medical History GERD (gastroesophageal reflux disease) Fatty liver Vapes nicotine containing substance Migraine Depression ADHD Dysplasia of cervix, low grade (DES 1) Surgical History H/O LEEP History of section History of knee surgery History of ankle surgery Family History Father Cirrhosis Mother Ovarian cancer Diabetes Maternal Grandmother Heart disease CVD (cardiovascular disease) Maternal Aunt Breast cancer Social History Household Members: Spouse and Children Housing: House Alcohol intake: current Alcohol intake frequency: a few times a month Alcohol type: beer and wine Patient Tobacco Use Status: Current everyday Tobacco user Tobacco use type: Smokeless Tobacco (vape ) Years Smoked: 20 e-Cigarette/Vaping Use: Currently Using Substance Use Type: Marijuana Current occupational status: employed Current occupation: [employer] Sexual orientation: Straight/Heterosexual Gender identity: Female Cognitive needs: No Hearing needs: No Vision needs: No Female Reproductive History Menstrual Age of Menarche: 9 Review of Systems Const Denies weight gain and Denies weight loss ENT Reports no additional complaints, Denies dysphagia and Denies odynophagia Card Reports no additional complaints Resp Reports no additional complaints GI Reports abdominal pain (Epigastric), Denies belching, Denies melena, Denies bloating, Denies change in bowel habits, Denies dysphagia, Denies excessive flatus, Reports dyspepsia, Reports heartburn, Denies diarrhea, Denies loose stools, Reports nausea, Denies odynophagia and Denies vomiting Reports no additional complaints Musc Reports no additional complaints Neuro Reports no additional complaints Psych Reports no additional complaints Endo Reports no additional complaints Physical Exam Vital Signs: Last Vital Signs Pulse 98 09/12/23 10:49 BP 124/62 09/12/23 10:49 Pulse Ox 100 09/12/23 10:49 Oxygen Delivery Method Room Air 09/12/23 10:49 BMI result Body Mass Index 27.4 Const General: healthy appearing, no acute distress and well developed Nutritional Appearance: well nourished Orientation/consciousness: patient oriented x3 HEENT Head: Yes normal to inspection, Yes normocephalic and Yes atraumatic Face and sinus: Yes normal facial exam Mouth: Normal oral and palatal mucosa present Throat: Yes posterior oropharynx normal, Yes tonsils normal and Yes uvula midline Eyes General: appearance normal, both eyes and all related structures Neck Neck: Yes normal visual inspection, Yes full ROM and Yes trachea midline Thyroid: Thyroid normal Resp Effort & Inspection: normal respiratory effort, able to speak in complete sentences, no tracheal deviation and symmetric chest movement Auscultation: clear to auscultation bilaterally Cardio Rate: regular rate Heart sounds: S1 normal heart sound present and S2 normal heart sound present GI Inspection: Yes normal to inspection and No distended Palpation (GI): Soft to palpation, not firm, nontender and No hepatosplenomegaly present Auscultation: normal bowel sounds General: Yes no CVA tenderness Back/Spine/Pelvis Back: no CVA tenderness Skin General skin exam: elasticity normal, turgor normal and dry skin Neuro General: patient oriented x3 Psych Appearance: grossly normal Mental Status: mental status grossly normal Speech and movement: Normal speech and movement present Assessment & Plan Assessment & Plan (1) GERD (gastroesophageal reflux disease): Code(s): K21.9 - Gastro-esophageal reflux disease without esophagitis Qualifiers: Esophagitis presence: without esophagitis Qualified Code(s): K21.9 - Gastro-esophageal reflux disease without esophagitis (2) Epigastric abdominal pain: Code(s): R10.13 - Epigastric pain (3) Constipation: Code(s): K59.00 - Constipation, unspecified Qualifiers: Constipation type: slow transit constipation Qualified Code(s): K59.01 - Slow transit constipation (4) Helicobacter pylori (H. pylori): Code(s): A04.8 - Other specified bacterial intestinal infections (5) Gastritis: Code(s): K29.70 - Gastritis, unspecified, without bleeding Qualifiers: Gastritis type: other gastritis Chronicity: chronic Gastritis bleeding: without bleeding Qualified Code(s): K29.50 - Unspecified chronic gastritis without bleeding Plan Patient will continue taking her antibiotics to treat H pylori. She will return in 1 month to recheck for eradication. Patient was encouraged to avoid dietary triggers. Zofran as ordered for patient. Patient will be placed on famotidine at bedtime after she finishes the antibiotics. Patient was encouraged to stop taking famotidine 24-48 hours before her breath test. Patient will need to be NPO 1 hour before the test. I will see her in 2 months, sooner on as needed basis. Patient is agreeable to this plan and verbalizes understanding of instructions. She was given the opportunity to ask questions all questions answered. Medications: Refilled ondansetron 4 mg PO Q8H PRN 14 tabs 0RF nausea and vomiting Coding Level of Care Code Est Pt Level 3 (85807) Diagnoses Gastroesophageal reflux disease without esophagitis K21.9 Esophagitis presence: without esophagitis Epigastric abdominal pain R10.13 Slow transit constipation K59.01 Constipation type: slow transit constipation Helicobacter pylori (H. pylori) A04.8 Other chronic gastritis without hemorrhage K29.50 Gastritis type: other gastritis Chronicity: chronic Gastritis bleeding: without bleeding Time Spent (min) 35 Comment 20 minutes spent with patient and additional 15 minutes spent reviewing her
[2023-09-12 10:49] VITALS: BP 124/62; PULSE 98; O2SAT 100; BMI 27.4
== END 2023-09-12 11:37 | disposition home or self-care (01) ==
PROVIDERS: PCP Physician Assistant; Visit Provider Nurse Practitioner Family
DX: K21.9 Gastro-esophageal reflux disease without esophagitis (principal); R10.13 Epigastric pain; K59.01 Slow transit constipation; A04.8 Other specified bacterial intestinal infections; K29.50 Unspecified chronic gastritis without bleeding
CPT/HCPCS: 99213

== ENCOUNTER → 2023-09-12 10:39 | Outpatient (BNVA) | payer BC, SELFPAY | PROVIDERS: PCP Physician Assistant; Visit Provider Nurse Practitioner Family ==

== ENCOUNTER 2023-10-12 11:07 | Outpatient (REF) | payer BC, SELFPAY ==
[2023-10-14 15:08] LABS: H Pylori Breath Test Negative (Negative)
== END 2023-10-12 11:08 | disposition home or self-care (01) ==
LOC: CF 11:07
PROVIDERS: PCP Physician Assistant; Visit Provider Nurse Practitioner Family
DX: Z11.2 Encounter for screening for other bacterial diseases (principal)
CPT/HCPCS: 83013; 99211

== ENCOUNTER 2023-11-28 08:09 | Outpatient (REF) | payer BC, SELFPAY ==
[2023-11-30 13:37] LABS: H Pylori Breath Test Negative (Negative)
== END 2023-11-28 08:10 | disposition home or self-care (01) ==
LOC: HO.LNP 08:09
PROVIDERS: PCP Physician Assistant; Visit Provider Nurse Practitioner Family
DX: K21.9 Gastro-esophageal reflux disease without esophagitis (principal); R10.13 Epigastric pain; K59.01 Slow transit constipation
CPT/HCPCS: 83013

== ENCOUNTER 2023-11-28 08:09 | Outpatient (AMB) | payer BC, SELFPAY ==
--- NOTE | 2023-11-28 08:12 | MHC.OFFVIS ---
Intake Vital Signs 11/28/23 08:19 Height 5 ft Weight 138 lb 14.259 oz BMI 27.1 BP 90/58 L Blood Pressure Location Lt brachial Position Sitting Pulse 80 Intake Visit Reasons: 2 month follow up Intake Note: Britta presents in the office as a 2 month follow up. CC: She states that she is still having stomach issues. She states that she did not hear anything back from the H pylori test so she is assuming that everything is okay. 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 Allergies No Known Allergies [No Known Allergies*] Allergy (Verified 11/28/23 08:19) Medication List - Last Reconciled 11/28/23 by LUZMARIA Humphrey-NOY atomoxetine (Strattera) 80 mg PO DAILY 30 days bismuth subsalicylate 2 tabs PO QID 14 days famotidine (Pepcid) 20 mg PO BEDTIME PRN levonorgestrel (Mirena) 1 device intrauterine CONT multivitamin 1 tab PO DAILY nicotine (polacrilex) 2 mg buccal Q2H PRN 15 days omeprazole 20 mg PO BID PRN ondansetron 4 mg PO Q8H PRN HPI 2 month follow up HPI Details LAST VISIT: GERD (gastroesophageal reflux disease) Epigastric abdominal pain Constipation Helicobacter pylori (H. pylori) Gastritis Plan Patient will continue taking her antibiotics to treat H pylori. She will return in 1 month to recheck for eradication. Patient was encouraged to avoid dietary triggers. Zofran as ordered for patient. Patient will be placed on famotidine at bedtime after she finishes the antibiotics. Patient was encouraged to stop taking famotidine 24-48 hours before her breath test. Patient will need to be NPO 1 hour before the test. I will see her in 2 months, sooner on as needed basis. Patient is agreeable to this plan and verbalizes understanding of instructions. She was given the opportunity to ask questions all questions answered. Medications Refilled ondansetron 4 mg PO Q8H PRN 14 tabs 0RF nausea and vomiting TODAY'S VISIT: Patient is here today for follow-up and for H pylori testing. Patient reports that she has not been taking famotidine since she finished antibiotics. Patient reports that she continues to have epigastric pain postprandially. Patient is doing elimination diet, trying low FODMAP diet and definitely is seeing the difference. Patient reports that she is able to tolerate the eggs. Definitely is avoiding gluten specially bread, pasta or pizza. Patient reports that she is less bloated now. Reports occasional dyspepsia without dysphagia or odynophagia. Patient reports that she has occasional postprandial loose stools. Sometimes feels like the food is just going through her. Patient denies any melena, hematochezia, unintentional weight loss or ribbon like stools. Patient denies any fever or chills. Denies any other GI concerning symptoms. [facility] Medical History GERD (gastroesophageal reflux disease) Fatty liver Vapes nicotine containing substance Migraine Depression ADHD Dysplasia of cervix, low grade (DES 1) Surgical History H/O LEEP History of section History of knee surgery History of ankle surgery Family History Father Cirrhosis Mother Ovarian cancer Diabetes Maternal Grandmother Heart disease CVD (cardiovascular disease) Maternal Aunt Breast cancer Social History Household Members: Spouse and Children Housing: House Alcohol intake: current Alcohol intake frequency: a few times a month Alcohol type: beer and wine Patient Tobacco Use Status: Current everyday Tobacco user Tobacco use type: Smokeless Tobacco (vape ) Years Smoked: 20 e-Cigarette/Vaping Use: Currently Using Substance Use Type: Marijuana Current occupational status: employed Current occupation: [employer] Sexual orientation: Straight/Heterosexual Gender identity: Female Cognitive needs: No Hearing needs: No Vision needs: No Female Reproductive History Menstrual Age of Menarche: 9 Review of Systems Const Denies weight gain and Denies weight loss ENT Reports no additional complaints, Denies dysphagia and Denies odynophagia Card Reports no additional complaints Resp Reports no additional complaints GI Reports abdominal pain (epigastric), Denies belching, Denies melena, Denies bloating, Denies change in bowel habits, Denies dysphagia, Denies excessive flatus, Reports dyspepsia, Reports heartburn, Denies diarrhea, Reports loose stools, Denies nausea, Denies odynophagia and Denies vomiting Reports no additional complaints Musc Reports no additional complaints Neuro Reports no additional complaints Psych Reports no additional complaints Endo Reports no additional complaints Physical Exam Const General: healthy appearing, no acute distress and well developed Nutritional Appearance: well nourished Orientation/consciousness: patient oriented x3 Resp Effort & Inspection: normal respiratory effort, able to speak in complete sentences, no tracheal deviation and symmetric chest movement Auscultation: clear to auscultation bilaterally Cardio Rate: regular rate GI Inspection: Yes normal to inspection and No distended Palpation (GI): Soft to palpation, not firm, nontender and No hepatosplenomegaly present Auscultation: normal bowel sounds General: Yes no CVA tenderness Back/Spine/Pelvis Back: no CVA tenderness Skin General skin exam: elasticity normal, turgor normal and dry skin Neuro General: patient oriented x3 Psych Appearance: grossly normal Mental Status: mental status grossly normal Assessment & Plan Assessment & Plan (1) GERD (gastroesophageal reflux disease): Code(s): K21.9 - Gastro-esophageal reflux disease without esophagitis Qualifiers: Esophagitis presence: without esophagitis Qualified Code(s): K21.9 - Gastro-esophageal reflux disease without esophagitis (2) Epigastric abdominal pain: Code(s): R10.13 - Epigastric pain (3) Constipation: Code(s): K59.00 - Constipation, unspecified Qualifiers: Constipation type: slow transit constipation Qualified Code(s): K59.01 - Slow transit constipation (4) Helicobacter pylori (H. pylori): Code(s): A04.8 - Other specified bacterial intestinal infections (5) Gastritis: Code(s): K29.70 - Gastritis, unspecified, without bleeding Qualifiers: Gastritis type: superficial Chronicity: chronic Gastritis bleeding: without bleeding Qualified Code(s): K29.30 - Chronic superficial gastritis without bleeding Plan Will do H pylori testing in the office today. Patient will start taking omeprazole 20 mg every morning. She can stop taking famotidine, however patient will have symptoms in the evening she can take it on as needed basis. Continue low FODMAP diet as we discussed. Continue avoiding dietary triggers. Avoid late night snacking. Will introduce fiber. Patient can take Citrucel [id number] daily. I will see patient in 3 months, sooner on as needed basis. Patient is agreeable to this plan and verbalizes understanding of instructions. She was given the opportunity to ask questions and all questions answered. Thank you for allowing me to participate in her care Orders: Orders H Pylori Breath Test Today Medications: New methylcellulose (laxative) (Citrucel) take it with full glass of water 500 mg PO DAILY 90 tabs 2RF K59.00 - Constipation, unspecified Changed From omeprazole 20 mg PO BID PRN K21.9 - Gastro-esophageal reflux disease without esophagitis To omeprazole 20 mg PO DAILY 90 caps 1RF K21.9 - Gastro-esophageal reflux disease without esophagitis Discontinued bismuth subsalicylate Discontinued Reason: Patient Completed Course 2 tabs PO QID 14 days 112 tabs 0RF A04.8 - Other specified bacterial intestinal infections Coding Level of Care Code Est Pt Level 4 (13256) Diagnoses Gastroesophageal reflux disease without esophagitis K21.9 Esophagitis presence: without esophagitis Epigastric abdominal pain R10.13 Slow transit constipation K59.01 Constipation type: slow transit constipation Helicobacter pylori (H. pylori) A04.8 Chronic superficial gastritis without bleeding K29.30 Gastritis type: superficial Chronicity: chronic Gastritis bleeding: without bleeding Time Spent (min) 35 Comment 20 minutes spent with patient and additional 15 minutes spent reviewing her records
[2023-11-28 08:19] VITALS: BP 90/58; PULSE 80; BMI 27.1
== END 2023-11-28 08:55 | disposition home or self-care (01) ==
PROVIDERS: PCP Physician Assistant; Visit Provider Nurse Practitioner Family
DX: K21.9 Gastro-esophageal reflux disease without esophagitis (principal); R10.13 Epigastric pain; K59.01 Slow transit constipation; A04.8 Other specified bacterial intestinal infections; K29.30 Chronic superficial gastritis without bleeding
CPT/HCPCS: 99214

== ENCOUNTER 2024-07-01 09:09 | Outpatient (AMB) | payer BC, SELFPAY ==
[2024-07-01 09:13] VITALS: BP 116/72; BMI 27.9
--- NOTE | 2024-07-01 09:13 | MHC.OFFVIS ---
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 No complaints. Last Pap/HPV was in 01/31 No previous screening Mammogram [facility] Medical History GERD (gastroesophageal reflux disease) Fatty liver Vapes nicotine containing substance Migraine Depression ADHD Dysplasia of cervix, low grade (DES 1) Surgical History H/O LEEP History of section History of knee surgery History of ankle surgery Family History Father Cirrhosis Mother Ovarian cancer Diabetes Maternal Grandmother Heart disease CVD (cardiovascular disease) Maternal Aunt Breast cancer Social History Household Members: Spouse and Children Housing: House Alcohol intake: current Alcohol intake frequency: a few times a month Alcohol type: beer and wine Patient Tobacco Use Status: Current everyday Tobacco user Tobacco use type: Smokeless Tobacco (vape ) Years Smoked: 20 e-Cigarette/Vaping Use: Currently Using Substance Use Type: Marijuana Current occupational status: employed Current occupation: [employer] Sexual orientation: Straight/Heterosexual Gender identity: Female Cognitive needs: No Hearing needs: No Vision needs: No Female Reproductive History Menstrual Age of Menarche: 9 Date of last pap smear: 02/02/21 Review of Systems Const All systems reviewed & are unremarkable except as noted in HPI and below Card Reports as per HPI Resp Reports as per HPI GI Reports as per HPI and Reports no additional complaints Reports as per HPI Physical Exam Const General: cooperative, healthy appearing and comfortable Chest Chest palpation & inspection: normal inspection of the chest and normal palpation of entire chest wall Breast/axilla inspection: normal inspection of the breasts and normal inspection of the axillae Breast/axilla palpation: normal palpation of the breasts, normal palpation of the axillae and no axillary lymphadenopathy Resp Effort & Inspection: normal respiratory effort Auscultation: clear to auscultation bilaterally Percussion: percussion normal Cardio Palpation: normal PMI Rate: regular rate Rhythm: regular rhythm Heart sounds: no murmurs and no rubs Peripheral pulses: Peripheral pulses 2+ throughout GI Inspection: Yes normal to inspection Palpation (GI): Soft to palpation, nontender, no guarding, not rigid and No hepatosplenomegaly present Percussion: Yes normal to percussion Auscultation: normal bowel sounds Rectal Exam - Female: deferred General: Yes bladder normal to palpation External Female Exam: No lesion Speculum Exam - Vagina: normal appearance of the vagina, normal palpation, normal vaginal discharge and not erythematous Speculum Exam - Cervix: normal appearance of the cervix and normal palpation Bimanual exam- vagina & uterus: normal bimanual exam, normal palpation, uterine size normal, bladder normal to palpation, consistency normal and normal palpation Bimanual Exam- Adnexa, other: normal adnexae, no masses and no tenderness Assessment & Plan Assessment & Plan (1) Well woman exam: Comment: DES 1 in 2019 status post LEEP 2019 followed by negative co testing 2020 Code(s): Z01.419 - Encounter for gynecological examination (general) (routine) without abnormal findings Category: Medical Plan: Cotesting done. Mammogram ordered. Counseled the patient about the recommended dietary allowance of 1000 mg of Calcium & 600 IU of vitamin D. The patient was instructed to perform monthly self-breast exams and to schedule an annual exam in a year; All questions answered and the patient verbalized understanding. Instructed the patient to schedule annual exam in a year Orders: Orders MM tomosynthesis screening BI Today Z12.31 - Encounter for screening mammogram for malignant neoplasm of breast Coding Level of Care Code Est Pt Prev Care 40-64y(61423) Diagnoses Well woman exam Z01.419
== END 2024-07-01 10:26 | disposition home or self-care (01) ==
PROVIDERS: PCP Physician Assistant; Visit Provider Obstetrics & Gynecology
DX: Z01.419 Encounter for gynecological examination (general) (routine) without abnormal findings (principal)
CPT/HCPCS: 99396

== ENCOUNTER 2024-07-01 09:09 | Outpatient (REF) | payer BC, SELFPAY ==
[2024-07-04 10:54] LABS: HPV mRNA E6/E7 Not Detected (Not Detected)
== END 2024-07-01 09:10 | disposition home or self-care (01) ==
LOC: HO.LNP 09:09
PROVIDERS: PCP Physician Assistant; Visit Provider Obstetrics & Gynecology
DX: Z01.419 Encounter for gynecological examination (general) (routine) without abnormal findings (principal)
CPT/HCPCS: 87624; 88175

== ENCOUNTER 2024-08-13 14:41 | Outpatient (AMB) | payer BC, SELFPAY ==
[2024-08-13 14:45] VITALS: BP 98/62; BMI 29.1
--- NOTE | 2024-08-13 14:45 | A.OFFPC_ITS ---
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 Accompanied by: Self / Same As Patient Allergies No Known Allergies [No Known Allergies*] Allergy (Verified 08/13/24 14:51) Medication List - Last Reconciled 08/13/24 by Andrea Samayoa PA-C levonorgestrel (Mirena) 1 device intrauterine CONT multivitamin 1 tab PO DAILY nicotine (polacrilex) 2 mg buccal Q2H PRN 15 days omeprazole 20 mg PO DAILY Tobacco use date assessed: 08/13/24 Dental Screening Dental Screen Date: 08/13/24 Did you have a dental visit in the last 12 months?: No Did you have a dental problem in the last 6 months where you did not have access to dental care?: No Was dental information given to patient?: Patient has dentist HPI annual exam HPI Details Patient is a 39-year-old female here today for an annual physical. . Patient has a past medical history significant for MDD, ADHD. Concern--> patient reports she feels that she is perimenopausal she has been having mood swings and hot flashes over the last few months. 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 She has a IUD in place in his unclear when her last menstrual period has been. She is willing to have her FSH checked. She also reports a few months ago falling down some stairs and was seen at a local ER. She was found to have a compression fracture in her lower lumbar spine. She has since been having lower lumbar spine pain with some radicular symptoms down right lower leg. She is interested in doing physical therapy. Epigastric pain: Has followed up with the [place] [facility]. She has gotten an endoscopy which did show some gastritis in a gastric polyp. She also did have H pylori and was treated with antibiotics.. Has been started on PPI therapy which has been somewhat helpful .. ADHD: Patient found success with Strattera 40 mg than up titrated Strattera dose to 80 mg though felt it was not effective. She is now still interested in being treated for ADHD. She is willing to try a stimulant ADHD medication thus will try Vyvanse at a low-dose for 2 week tie period.. 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: Followed by [place] paper stripper in his up-to-date with Pap- 2022 [facility] Medical History GERD (gastroesophageal reflux disease) Fatty liver Vapes nicotine containing substance Migraine Depression ADHD Dysplasia of cervix, low grade (DES 1) Surgical History H/O LEEP History of section History of knee surgery History of ankle surgery Family History Father Cirrhosis Substance use disorder Mother Ovarian cancer Diabetes Mental health disorder Maternal Grandmother Heart disease CVD (cardiovascular disease) Maternal Aunt Breast cancer Social History (Updated 08/13/24 @ 14:57 by Andrea Samayoa PA-C) Household Members: Spouse and Children Housing: House Alcohol intake: current Alcohol intake frequency: a few times a month Alcohol type: beer and wine Patient Tobacco Use Status: Current everyday Tobacco user Tobacco use type: Smokeless Tobacco Years Smoked: 20 e-Cigarette/Vaping Use: Currently Using Substance Use Type: Marijuana service: No Current occupational status: employed Current occupation: [employer] Current occupational exposures/hazards: No Sexual orientation: Straight/Heterosexual Gender identity: Female Cognitive needs: No Hearing needs: No Vision needs: No Female Reproductive History Menstrual Age of Menarche: 9 Questionnaire PHQ-9 Over the last 2 weeks, how often have you been bothered by any of the following problems? 1. Little interest or pleasure in doing things: several days 2. Feeling down, depressed, or hopeless: several days 3. Trouble falling or staying asleep, or sleeping too much: nearly every day 4. Feeling tired or having little energy: nearly every day 5. Poor appetite or overeating: more than half the days 6. Feeling bad about yourself - or that you are a failure or have let yourself or your family down: several days 7. Trouble concentrating on things, such as reading the newspaper or watching television: several days 8. Moving or speaking so slowly that other people could have noticed. Or the opposite - being so fidgety or restless that you have been moving around a lot more than usual: not at all 9. Thoughts that you would be better off or of hurting yourself in some way: not at all Total score: 12 Depression Screening Interpretation: Positive Depression Screening Follow-up: Existing condition Depression Screening Done: Yes 96796 - PHQ-9 Billing: Yes Source: Developed by Drs. Brett Arevalo, Kinjal Johnson, David Collins and colleagues, with an educational cristóbal from [employer]. Thrive Questionnaire Date Thrive assessed: 08/13/24 I am a: Patient What is your living situation today?: I have a steady place to live Within the past 12 months, did the food you bought not last and you didn't have the money to get more?: Never true Within the past 12 months, did you worry whether your food would run out before you got money to buy more?: Never true Do you have trouble paying for medicines?: I choose not to answer this question Do you have trouble getting transportation to medical appointments?: No Do you have trouble paying your heating and electricity bill?: I choose not to answer this question Do you have trouble taking care of your child, family member or friend?: No Do you have trouble with day-to-day activities such as bathing, preparing meals, shopping, managing finances, etc.?: No Are you currently unemployed and looking for a job?: No Are you interested in more education?: Yes Please select the resources that you would like help with: None Currently or been in a relationship where the following occur: I choose not to answer THRIVE Score: 0 AUDIT C Alcohol Use Questionnaire (AUDIT-C) 1. How often do you have a drink containing alcohol?: 2-3 times a week 2. How many drinks containing alcohol do you have on a typical day when you are drinking?: 1 or 2 3. How often do you have six or more drinks on one occasion?: Less than monthly Total Score: 4 ANGELICA-7 AMB Questionnaire ANGELICA-7 Date ANGELICA - 7 assessed: 08/13/24 Feeling nervous, anxious, or on edge: 3 = Nearly every day Not being able to stop or control worryin = Nearly every day Worrying too much about different things: 2 = More than half the days Trouble relaxin = Nearly every day Being so restless that it is hard to sit still: 1 = Several days Becoming easily annoyed or irritable: 1 = Several days Feeling afraid as if something awful might happen: 1 = Several days Total ANGELICA-7 score (0-4 normal; 5-9 mild; 10-14 moderate; 15-21 severe): 14 Source: Developed by Drs. Brett Arevalo, Kinjal Johnson, David Collins and colleagues, with an educational cristóbal from [employer]. ANGELICA-7 Assessment Billing ANGELICA-7 Assessment Tool: ANGELICA-7 Assessment 22373 Review of Systems Const Denies excessive sweating, Denies fatigue and Denies headache(s) Eyes Denies loss of vision ENT Denies vertigo, Denies dizziness, Denies headache(s) and Denies sore throat Card Denies chest pain, Denies leg edema and Denies lightheadedness Resp Denies cough, Denies hemoptysis and Denies wheezing GI Denies abdominal pain, Denies melena, Denies constipation, Denies diarrhea and Denies vomiting Denies urinary frequency, Denies dysuria and Denies urinary urgency Musc Denies arthralgias, Denies joint swelling, Denies numbness and Denies tingling Skin/Breast Denies rash and Denies skin ulcer Neuro Denies Abnormal speech present, Denies behavioral changes, Denies vertigo, Denies dizziness, Denies headache(s), Denies loss of vision, Denies memory loss, Denies numbness and Denies tingling Psych Denies anxiety, Denies behavioral changes, Reports depression, Reports difficulty concentrating, Reports irritability, Denies memory loss, Reports mood swings and Denies panic attacks Endo Denies excessive sweating, Denies fatigue, Denies flushing, Denies polydipsia and Denies polyuria [place]/Lymph Denies easy bleeding and Denies easy bruising Aller/Immun Denies wheezing Physical exam (Primary Care) Vital Signs: Last Vital Signs BP 98/62 08/13/24 14:45 BMI result Body Mass Index 29.1 Tobacco/Smoking Status: Tobacco use Status Tobacco use date assessed 08/13/24 08/13/24 14:50 Patient Tobacco Use Status Current everyday Tobacco 08/13/24 14:57 Tobacco use type Smokeless Tobacco 08/13/24 14:57 e-Cigarette/Vaping Use Currently Using 08/13/24 14:57 PHQ-9: PHQ-9 Score PHQ-9: Total score 12 08/13/24 15:22 Depression Screening Interpretation: Positive Depression Screening Follow-up: Existing condition Thrive Assessment: Date of Thrive Assessment Date Thrive assessed 08/13/24 08/13/24 14:50 Currently or been in a relationship where the following occur: I choose not to answer Const General: healthy appearing, no acute distress, alert and awake Nutritional Appearance: well nourished Orientation/consciousness: oriented to person, oriented to place and oriented to time HENMT Head: Yes normocephalic Ears: TM's normal bilaterally General nose exam: Normal nasal mucous membranes and turbinates present Face and sinus: No sinus tenderness Mouth: Normal oral and palatal mucosa present and tongue normal Teeth and gingiva: dentition normal and gingiva normal Throat: Yes posterior oropharynx normal, Yes tonsils normal and Yes uvula midlin e Eyes Conjunctivae: conjunctivae normal Sclerae: sclerae normal Pupils: Equal, round and reactive pupils present EOM: EOMs intact bilaterally Direct Ophthalmoscopy: No no photophobia Neck Neck: Yes no lymphadenopathy and Yes no JVD Thyroid: Thyroid normal Carotids: no bruits Chest Chest palpation & inspection: no tenderness Resp Effort & Inspection: normal respiratory effort and not tachypneic Auscultation: no crackles, no rales, no rhonchi and no wheezes Cardio Jugular venous distension: no JVD Rate: regular rate Rhythm: regular rhythm Heart sounds: no murmurs and normal S1 and S2 Bruits: no carotid bruits Peripheral pulses: Peripheral pulses 2+ throughout GI Inspection: Yes normal to inspection, No abdominal wall ecchymosis and No visible herniation Palpation (GI): Soft to palpation, nontender, no hepatomegaly and no splenomegaly Auscultation: normal bowel sounds General: Yes no CVA tenderness Back/Spine/Pelvis Back: no CVA tenderness and No back tenderness Cervical Spine: cervical ROM normal Thoracic/Lumbar Spine: thoracic and lumbar spine normal to inspection, straight leg raise negative bilaterally, No thoraco-lumbar ROM limited and No lumbar spinal tenderness Skin General skin exam: no rashes or lesions noted and dry skin Lesions: no lesions Rashes: no rashes Wounds: no wounds Neuro General: oriented to person, oriented to place and oriented to time Cranial nerves: Yes Equal, round and reactive pupils present Cognition (Neuro): normal cognition Speech: No Abnormal speech present Gait exam (Neuro): Normal gait present Motor exam (neuro): no tremor noted Extrem Right upper extremity: full ROM Left upper extremity: full ROM Right lower extremity: full ROM; no edema Left lower extremity: full ROM; no edema Psych Appearance: grossly normal Mental Status: mental status grossly normal Speech and movement: Normal speech and movement present Affect: normal affect Attitude: cooperative Thought process: Normal thought process present and Racing thoughts present Office Procedures Flu Questionnaire Does the patient have a severe egg allergy?: No Immunizations Fluarix Triv [id number] (PF) 45 mcg (15 mcg x 3)/0.5 mL IM syringe Performing Provider: Andrea Samayoa PA-C [facility] [place] [facility] Documented (not given) by: TREMAINE Miranda on 08/13/24 15:22 Reason Not Given: Not Given Coding Level of Care Code Est Pt Prev Care 40-64y(54149) Diagnoses Annual physical exam Z00.00 ADHD (attention deficit hyperactivity disorder), inattentive type F90.0 Epigastric abdominal pain R10.13 Lumbar spine pain M54.50 Hot flashes R23.2 MDD (major depressive disorder), recurrent episode, mild F33.0 Additional Codes ANGELICA-7 Assessment Billing - ANGELICA-7 Assessment Tool: ANGELICA-7 Assessment 05722 ([id number]) Assessment & Plan Assessment & Plan (1) Annual physical exam: Code(s): Z00.00 - Encounter for general adult medical examination without abnormal findings Category: Medical (2) ADHD (attention deficit hyperactivity disorder), inattentive type: Code(s): F90.0 - Attention-deficit hyperactivity disorder, predominantly inattentive type Category: Medical Plan: As per HPI patient did find some success with Strattera 40 mg though at higher doses was not effective. She is interested in trying a stimulant medication for ADHD as she still has trouble focusing and staying on task in her job and in her personal life. (3) Epigastric abdominal pain: Code(s): R10.13 - Epigastric pain Category: Medical Plan: As per HPI patient has started PPI therapy which has been helpful though still has epigastric pain and bloating quite often. She has made changes in her diet and reduced carbohydrates and eliminated bread which has helped her GI symptoms. 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 (4) Lumbar spine pain: Code(s): M54.50 - Low back pain, unspecified Category: Medical Plan: As per HPI patient does report having a compression fracture due to a fall down some stairs a few months ago. She continues to have pain particularly when lying down flat. She would likely benefit from formal physical therapy. (5) Hot flashes: Code(s): R23.2 - [place] Category: Medical Plan: As per HPI (6) MDD (major depressive disorder), recurrent episode, mild: Code(s): F33.0 - Major depressive disorder, recurrent, mild Category: Medical Plan: Patient's PHQ-9 score positive for depression which has been existing condition for her. She feels that her ADHD symptoms causes her mood/depression to worsen at times. She would like to be treated for her ADHD. Plan As per [facility] Orders: Orders Influenza [id number] Immunization 08/13/24 Z23 - Encounter for immunization Follicle Stimulating Hormone 08/13/24 R23.2 - [place] PT Evaluation and Treatment 08/13/24 M54.50 - Low back pain, unspecified Medications: New lisdexamfetamine (Vyvanse) Partial Fill upon patient request. 30 mg PO DAILY 14 caps 0RF 14 days F90.0 - Attention-deficit hyperactivity disorder, predominantly inattentive type
== END 2024-08-13 15:27 | disposition home or self-care (01) ==
PROVIDERS: PCP Physician Assistant; Visit Provider Physician Assistant
DX: Z00.00 Encounter for general adult medical examination without abnormal findings (principal); F33.0 Major depressive disorder, recurrent, mild; F90.0 Attention-deficit hyperactivity disorder, predominantly inattentive type; R10.13 Epigastric pain; M54.50 Low back pain, unspecified; R23.2 Flushing

== ENCOUNTER → 2024-08-13 14:41 | Outpatient (BNVA) | payer BC, SELFPAY | PROVIDERS: PCP Physician Assistant; Visit Provider Physician Assistant | DX: Z00.00 Encounter for general adult medical examination without abnormal findings (principal); F90.0 Attention-deficit hyperactivity disorder, predominantly inattentive type; R10.13 Epigastric pain; M54.50 Low back pain, unspecified; R23.2 Flushing; F33.0 Major depressive disorder, recurrent, mild; Z23 Encounter for immunization | CPT/HCPCS: 90471; 90656; 96127 ==

== ENCOUNTER 2024-09-02 14:31 | Outpatient (AMB) | payer BC, SELFPAY ==
--- NOTE | 2024-09-02 14:31 | MHC.PC.OV ---
Intake Visit Reasons: f/u ADHD ( telehealth ) Allergies No Known Allergies [No Known Allergies*] Allergy (Verified 09/02/24 14:43) Medication List - Last Reconciled 09/02/24 by Andrea Samayoa PA-C levonorgestrel (Mirena) 1 device intrauterine CONT lisdexamfetamine (Vyvanse) 30 mg PO DAILY 14 days multivitamin 1 tab PO DAILY nicotine (polacrilex) 2 mg buccal Q2H PRN 15 days omeprazole 20 mg PO DAILY Tobacco use date assessed: 08/13/24 Dental Screening Dental Screen Date: 08/13/24 HPI f/u ADHD ( telehealth ) HPI Details Patient is a 39-year-old female being evaluated today via telephone only. At last visit we discussed her ADHD symptoms and was interested in starting stimulant medication for ADHD. She has been having a very difficult time in her personal life and at our job on a attention and focus to detail tasks. We started Vyvanse 30 mg though unfortunately was not covered by insurance and available at the pharmacy. She is interested in trying alternative thus will send in Concerta 36 mg extended release to try. [facility] Medical History GERD (gastroesophageal reflux disease) Fatty liver Vapes nicotine containing substance Migraine Depression ADHD Dysplasia of cervix, low grade (DES 1) Surgical History H/O LEEP History of section History of knee surgery History of ankle surgery Family History Father Cirrhosis Substance use disorder Mother Ovarian cancer Diabetes Mental health disorder Maternal Grandmother Heart disease CVD (cardiovascular disease) Maternal Aunt Breast cancer Social History Household Members: Spouse and Children Housing: House Alcohol intake: current Alcohol intake frequency: a few times a month Alcohol type: beer and wine Patient Tobacco Use Status: Current everyday Tobacco user Tobacco use type: Smokeless Tobacco Years Smoked: 20 e-Cigarette/Vaping Use: Currently Using Substance Use Type: Marijuana service: No Current occupational status: employed Current occupation: [employer] Current occupational exposures/hazards: No Sexual orientation: Straight/Heterosexual Gender identity: Female Cognitive needs: No Hearing needs: No Vision needs: No Female Reproductive History Menstrual Age of Menarche: 9 Questionnaire Thrive Questionnaire Date Thrive assessed: 08/13/24 AUDIT C Alcohol Use Questionnaire (AUDIT-C) 1. How often do you have a drink containing alcohol?: 2-3 times a week 2. How many drinks containing alcohol do you have on a typical day when you are drinking?: 1 or 2 3. How often do you have six or more drinks on one occasion?: Less than monthly Total Score: 4 ANGELICA-7 AMB Questionnaire ANGELICA-7 Date ANGELICA - 7 assessed: 08/13/24 Source: Developed by Drs. Brett Arevalo, Kinjal Johnson, David Collins and colleagues, with an educational cristóbal from [employer]. Review of Systems Const Denies headache(s) Eyes Denies loss of vision ENT Denies vertigo, Denies dizziness, Denies headache(s) and Denies sore throat Card Denies chest pain, Denies leg edema and Denies lightheadedness Resp Denies cough, Denies hemoptysis and Denies wheezing GI Denies abdominal pain, Denies melena, Denies constipation, Denies diarrhea and Denies vomiting Denies urinary frequency, Denies dysuria and Denies urinary urgency Musc Denies arthralgias, Denies joint swelling, Denies numbness and Denies tingling Neuro Denies behavioral changes, Denies vertigo, Denies dizziness, Denies headache(s), Denies loss of vision, Denies memory loss, Denies numbness and Denies tingling Psych Denies anxiety, Denies behavioral changes, Denies depression, Denies memory loss and Denies panic attacks [place]coe/Lymph Denies easy bleeding and Denies easy bruising Aller/Immun Denies wheezing Physical exam (Primary Care) Tobacco/Smoking Status: Tobacco use Status Tobacco use date assessed 08/13/24 09/02/24 14:33 Patient Tobacco Use Status Current everyday Tobacco 09/02/24 14:33 Tobacco use type Smokeless Tobacco 09/02/24 14:33 e-Cigarette/Vaping Use Currently Using 09/02/24 14:33 Thrive Assessment: Date of Thrive Assessment Date Thrive assessed 08/13/24 09/02/24 14:33 Telehealth Telehealth Telehealth Platform: Telephone Location of provider rendering services: practice address Location of patient: address on file Patient Identification confirmed using: Name, : Yes Telehealth method: voice only (android) Patient verbally consented to treatment: Yes Patient verbally consented to billing insurance company: Yes Patient informed of any privacy concerns related to visit: Yes Minutes spent on Phone/Video with Pt.: 11 Coding Level of Care Code Tele Est Pt Level 3 (85736) Diagnoses ADHD (attention deficit hyperactivity disorder), inattentive type F90.0 Assessment & Plan Assessment & Plan (1) ADHD (attention deficit hyperactivity disorder), inattentive type: Code(s): F90.0 - Attention-deficit hyperactivity disorder, predominantly inattentive type Category: Medical Plan: As per HPI patient was not able to receive Vyvanse 30 mg from the pharmacy has it has not been available and on back order. She has been on Strattera was not effective and caused side effects.. She is still willing to try stimulant ADHD to help her with her attention and focus. Medications: New methylphenidate HCl ER (Concerta) Partial Fill upon patient request. 36 mg PO DAILY 14 tabs 0RF 14 days F90.0 - Attention-deficit hyperactivity disorder, predominantly inattentive type Discontinued lisdexamfetamine (Vyvanse) Partial Fill upon patient request. Discontinued Reason: Doctor's Order 30 mg PO DAILY 14 days 14 caps 0RF F90.0 - Attention-deficit hyperactivity disorder, predominantly inattentive type
== END 2024-09-02 15:29 | disposition home or self-care (01) ==
LOC: HO.HMCH 14:31
PROVIDERS: PCP Physician Assistant; Visit Provider Physician Assistant
DX: F90.0 Attention-deficit hyperactivity disorder, predominantly inattentive type (principal)

== ENCOUNTER → 2024-09-02 14:31 | Outpatient (BNVA) | payer BC, SELFPAY | PROVIDERS: PCP Physician Assistant; Visit Provider Physician Assistant ==

== ENCOUNTER 2024-10-16 09:09 | Outpatient (RCR) | payer BC, SELFPAY ==
--- NOTE | 2024-09-16 13:54 | MHC.PT.EP ---
[facility] [place] Office [place] Office [place] Office [address] Anastasiia Hopper [address] [phone] F: [phone] F: [phone] F: [phone] F: [phone] Physical Therapy Plan of Care Date of Evaluation: 09/16/24 Date of Surgery: Diagnosis: Low Back Pain, unspecified Assessment: Pt is a pleasant 39yo F who presents to PT with low back pain after falling down the stairs in October. Pain is located to low back and radiates into R glute. She presents to PT with current impairments in pain, decreased lumbar ROM, decreased core stabilization, decreased hip/glute strength, soft tissue restrictions, decreased muscle length, and impaired posture. She is limited functionally by laying flat, prolonged sitting, bending, lifting, and sleeping. She is a good candidate for skilled PT in order to address current impairments to facilitate return to PLOF. She is recommended to be seen 2x/week for 4 weeks and will be reassessed Frequency and Duration: The patient will be seen 2x/week for 4 weeks Short Term Goals: Pt will be I with HEP to promote self management of symptoms Pt will demonstrate improvements in postural awareness throughout the day Pt will have centralization of symptoms Custodial Goals: Pt will tolerate prolonged sitting > 1 hour with improved posture and minimal to no discomfort Pt will be able to sleep > 3 consecutive nights without increase in back pain Pt will demonstrate ability to squat and steel pickler object from floor with proper mechanics and minimal to no pain or discomfort Treatment Plan: Modalities to reduce pain, spasms and effusion. Manual therapy to restore motion and function. Therapeutic exercise to improve strength and flexibility. Neuromuscular re-education for posture and balance. Therapeutic activities to return to functional activities of daily living. Electronically signed by: Jody Velez, PT, DPT Please sign and return to therapist. Thank you for your referral.
--- NOTE | 2024-10-16 16:17 | MHC.PT.DC ---
[facility] [place] Office [place] Office [place] Office [address] Anastasiia Hopper [address] [phone] F: [phone] F: [phone] F: [phone] F: [phone] Physical Therapy Discharge Report Diagnosis: Low Back Pain, unspecified Date of Surgery: Date of Evaluation: 09/16/24 Date of Discharge: Treatments to Date: 7 Cancellations to Date: No Shows to Date: Discharge Status: Discharge Summary: Pt has made good progress since SOC. She has had an improvement in postural awareness and a decrease in pain. She is independent with HEP and has good self management of symptoms at this time. She is being D/C from skilled PT. I provided pt with printed, updated copy of HEP. Pt reports no further questions or concerns for PT at this time Electronically signed by: Please sign and return to therapist. Thank you for your referral.
--- NOTE | 2024-10-16 16:31 | MHC.PT.DC ---
[facility] [place] Office [place] Office [place] Office [address] Anastasiia Hopper [address] [phone] F: [phone] F: [phone] F: [phone] F: [phone] Physical Therapy Discharge Report Diagnosis: Low Back Pain, unspecified Date of Surgery: Date of Evaluation: 09/16/24 Date of Discharge: 10/16/24 Treatments to Date: 7 Cancellations to Date: No Shows to Date: Discharge Status: Improved Function Independent with HEP Discharge Summary: Pt has made good progress since SOC. She has had an improvement in postural awareness and a decrease in pain. She is independent with HEP and has good self management of symptoms at this time. She is being D/C from skilled PT. I provided pt with printed, updated copy of HEP. Pt reports no further questions or concerns for PT at this time Electronically signed by: Jody Velez, PT, DPT Please sign and return to therapist. Thank you for your referral.
== END 2024-10-16 16:17 | disposition home or self-care (01) ==
LOC: HO.PT 09:09
PROVIDERS: PCP Physician Assistant; Visit Provider Physician Assistant
DX: M54.50 Low back pain, unspecified (principal)
CPT/HCPCS: 97110; 97140; 97161

== ENCOUNTER 2025-09-03 10:25 | Outpatient (AMB) | payer BC, SELFPAY ==
--- NOTE | 2025-09-03 10:26 | MHC.OFFVIS ---
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 She has a history of a vaginal followed by a for prolonged rupture membranes not advancing in labor. She has had a Mirena IU S for about 8 years and wants it replaced she does depend on it for control. She has not been able to feel the strings in a long time and she is thinking in the past that the strings might of been cut during a LEEP procedure. She is experiencing some hot flashes and some challenges with sleep and is heavier than she would like to be even though she has watching her weight and working out and taking vigorous classes at the gym. She has orthopedic injuries from 2 separate events many years ago and they are well healed but she can definitely feel the rods and hardware she has in her knee and her ankle. She also is due for mammogram. She sees her primary care provider and keeps up-to-date on health screens. She and her family are trying very hard to be healthy together she tracks her activity with an aura ring. [facility] Medical History (Updated 09/03/25 @ 11:27 by Ilsa Bullock CNM) GERD (gastroesophageal reflux disease) Fatty liver Vapes nicotine containing substance Migraine Depression ADHD Dysplasia of cervix, low grade (DES 1) Surgical History H/O LEEP History of section History of knee surgery History of ankle surgery Family History Father Cirrhosis Substance use disorder Mother Ovarian cancer Diabetes Mental health disorder Maternal Grandmother Heart disease CVD (cardiovascular disease) Maternal Aunt Breast cancer Social History Household Members: Spouse and Children Housing: House Alcohol intake: current Alcohol intake frequency: a few times a month Alcohol type: beer and wine Patient Tobacco Use Status: Current everyday Tobacco user Tobacco use type: Smokeless Tobacco Years Smoked: 20 e-Cigarette/Vaping Use: Currently Using Substance Use Type: Marijuana Patient : No service: No Current occupational status: employed Current occupation: [employer] Current occupational exposures/hazards: No Sexual orientation: Straight/Heterosexual Gender identity: Female Cognitive needs: No Hearing needs: No Vision needs: No Female Reproductive History Menstrual Age of Menarche: 9 control method: progestin IUCD (Mirena) Total pregnancies: 2 Full term: 2 Date of last pap smear: 02/01/21 History of abnormal pap smear: Yes Physical Exam Vital Signs: Last Vital Signs BP 96/68 09/03/25 10:40 BMI result Body Mass Index 34.6 Const General: healthy appearing, comfortable, no acute distress, well developed and alert Nutritional Appearance: average body habitus Orientation/consciousness: patient oriented x3 Limitations: no limitations HEENT Head: Yes normocephalic Neck Neck: Yes normal visual inspection Chest Chest palpation & inspection: normal inspection of the chest Breast/axilla inspection: normal inspection of the breasts and normal inspection of the axillae Breast/axilla palpation: normal palpation of the breasts and normal palpation of the axillae Resp Effort & Inspection: normal respiratory effort GI Inspection: Yes normal to inspection, No Abdominal wall edema and No distended Palpation (GI): Soft to palpation and nontender Other: External exam within normal limits. Vagina is pink and moist with scant to no discharge to speak of. Cervix is multiparous status post LEEP pink smooth no abnormal discharge Mirena string is not visible in os nor is it able to be teased out with a Cytobrush. Uterus is small anteverted mobile nontender adnexa nontender nonenlarged very very good muscle tone. General: Yes bladder normal to palpation External Female Exam: normal external appearance and normal appearance of the urethra Speculum Exam - Vagina: normal appearance of the vagina, normal palpation and normal vaginal discharge Speculum Exam - Cervix: normal appearance of the cervix, normal palpation and nontender Bimanual exam- vagina & uterus: normal bimanual exam, normal palpation, uterine size normal, bladder normal to palpation, consistency normal, normal palpation, uterine mobility normal, uterine shape normal, No Cervical tenderness present, non-tender and no cervical motion tenderness Bimanual Exam- Adnexa, other: normal adnexae, no masses, normal and No adnexal tenderness Neuro General: patient oriented x3 Assessment & Plan Assessment & Plan (1) Well woman exam: Comment: DES 1 in 2019 status post LEEP 2019 followed by negative co testing 2020 Code(s): Z01.419 - Encounter for gynecological examination (general) (routine) without abnormal findings Category: Medical (2) IUD strings lost: Code(s): T83.32XA - Displacement of intrauterine contraceptive device, initial encounter Category: Medical (3) Well woman exam with routine gynecological exam: Code(s): Z01.419 - Encounter for gynecological examination (general) (routine) without abnormal findings Category: Medical (4) Perimenopause: Code(s): N95.1 - Menopausal and female climacteric states Category: Medical (5) Dysplasia of cervix, low grade (DES 1): Comment: 2016 Pap negative HPV positive 2018 Pap LGSIL HPV not detected biopsy DES 1 12/2019 LEEP, DES 1 2020 co testing negative Code(s): N87.0 - Mild cervical dysplasia Category: Medical Plan -----Discussed in this visit the following: healthy balanced diet, regular and consistent exercise, getting recommended health screens, doing the best she can for her particular health concerns, kegel exercises, pap smear screening and followup recommendations, mammography screening and SBE, normal changes in cycles in her life stage--- . I am ordering her mammogram I am ordering a ultrasound to verify that the IUDs still in the correct position. She and I can have a tele visit if her insurance permits afterwards to review the findings. Thereafter as the strings are not visible nor able to be teased out she would need an appointment with guest services associate to remove and replace the Mirena with the tool he has a available.. Discussed ole menopausal changes the she is experiencing uncommon ways of managing discussed that often times other provider's may consider hormonal treatments and that there were nonhormonal treatments for hot flashes but the latter would normally be prescribed by primary care and all have side effects and often times the best way to manage symptoms is non medicinally and we discussed these at length and including sleep hygiene issues, vaginal dryness, libido changes, cotton clothing, temperatures, dietary issues exercise care for bones etc. Orders: Orders US pelvic and transvaginal Today N95.1 - Menopausal and female climacteric states, T83.32XA - Displacement of intrauterine contraceptive device, initial encounter, Z01.419 - Encounter for gynecological examination (general) (routine) without abnormal findings, Z12.39 - Encounter for other screening for malignant neoplasm of breast MM tomosynthesis screening Today N87.0 - Mild cervical dysplasia, T83.32XA - Displacement of intrauterine contraceptive device, initial encounter, Z01.419 - Encounter for gynecological examination (general) (routine) without abnormal findings, Z12.31 - Encounter for screening mammogram for malignant neoplasm of breast Coding Level of Care Code Est Pt Prev Care 40-64y(42778) Diagnoses Well woman exam Z01.419 IUD strings lost T83.32XA Well woman exam with routine gynecological exam Z01.419 Perimenopause N95.1 Dysplasia of cervix, low grade (DES 1) N87.0
[2025-09-03 10:40] VITALS: BP 96/68; BMI 34.6
== END 2025-09-03 13:45 | disposition home or self-care (01) ==
LOC: HO.HWSM 10:25
PROVIDERS: PCP Physician Assistant; Visit Provider Advanced Practice Midwife
DX: Z01.419 Encounter for gynecological examination (general) (routine) without abnormal findings (principal); T83.32XA Displacement of intrauterine contraceptive device, initial encounter; N95.1 Menopausal and female climacteric states; N87.0 Mild cervical dysplasia
CPT/HCPCS: 99396; 99459

== ENCOUNTER 2025-09-03 10:25 | Outpatient (REF) | payer BC, SELFPAY ==
[2025-09-04 05:46] LABS: Bacterial Vaginosis PCR POSITIVE (Negative); Candida Group PCR NOT DETECTED (Not Detect); Candida glab krusei PCR NOT DETECTED (Not Detect); Trichomonas vaginalis PCR NOT DETECTED (Not Detect)
[2025-09-04 06:16] LABS: CT PCR NOT DETECTED (Not Detect.); NG PCR NOT DETECTED (Not Detect.)
== END 2025-09-03 10:26 | disposition home or self-care (01) ==
LOC: HO.LNP 10:25
PROVIDERS: PCP Physician Assistant; Visit Provider Advanced Practice Midwife
DX: Z01.419 Encounter for gynecological examination (general) (routine) without abnormal findings (principal); Z11.51 Encounter for screening for human papillomavirus (HPV); Z20.2 Contact with and (suspected) exposure to infections with a predominantly sexual mode of transmission; T83.32XA Displacement of intrauterine contraceptive device, initial encounter; N95.1 Menopausal and female climacteric states; Z87.410 Personal history of cervical dysplasia
CPT/HCPCS: 81515; 87491; 87591; 87626; 88175

== ENCOUNTER 2025-09-08 16:05 | Outpatient (AMB) | payer BC, SELFPAY ==
--- NOTE | 2025-09-08 16:16 | MHC.PC.OV ---
Vital Signs 09/08/25 16:18 Height 5 ft Weight 163 lb 6 oz BMI 31.9 BP 88/60 L Blood Pressure Location Lt brachial Position Sitting Pulse 92 Pulse Source Pulse Oximeter Temp 97.3 F Temp Source Temporal Artery Scan Pulse Oximetry (%) 100 Oxygen Delivery Method Room Air Intake Visit Reasons: Reschedule annual exam Intake Note: Patient is here today for a physical. Data Administrator Required: No Outdoor Emergency Care Technician: Not Required per policy Accompanied by: Self / Same As Patient Allergies No Known Allergies (No Known Allergies*) Allergy (Verified 09/08/25 16:44) Medication List - Last Reconciled 09/08/25 by Andrea Samayoa PA-C levonorgestrel (Mirena) 1 device intrauterine CONT Tobacco use date assessed: 09/08/25 Dental Screening Dental Screen Date: 09/08/25 Did you have a dental visit in the last 12 months?: No Did you have a dental problem in the last 6 months where you did not have access to dental care?: No Was dental information given to patient?: No HPI Reschedule annual exam HPI Details Patient is a 40-year-old female here today for an annual physical. . Patient has a past medical history significant for MDD, ADHD. Concern--> patient reports she feels that she is perimenopausal she has been having mood swings and hot flashes over the last few months. She is speaking with her ob gyn physician assistant specialist about this though no workup. She has a IUD in place in his unclear when her last menstrual period has been. She is willing to have her FSH checked. .. Fatty liver: Past gastrointestinal workup in 2022 included an ultrasound which showed hepatic steatosis and a gallbladder polyp. She has a history of GERD and reports associated pain in the lower or middle abdomen which is sensitive to pressure. Despite going to the gym, being active, and modifying her diet to cut out carbs, she has been unable to lose weight and has experienced weight gain. .. ADHD: Has tried many different ADHD medication non stimulant and stimulant though has not been consistent with the use of these medications. 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 At this time she is not interested in any medication for her mental health. 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 exams: Followed by [facility] physician assistant in his up-to-date with Pap- [facility] Medical History GERD (gastroesophageal reflux disease) Fatty liver Vapes nicotine containing substance Migraine Depression ADHD Dysplasia of cervix, low grade (DES 1) Surgical History H/O LEEP History of section History of knee surgery History of ankle surgery Family History Father Cirrhosis Substance use disorder Mother Ovarian cancer Diabetes Mental health disorder Maternal Grandmother Heart disease CVD (cardiovascular disease) Maternal Aunt Breast cancer Social History Household Members: Spouse and Children Housing: House Alcohol intake: current Alcohol intake frequency: a few times a week Alcohol type: beer and wine Patient Tobacco Use Status: Former Tobacco user Tobacco use type: Smokeless Tobacco Years Smoked: 20 e-Cigarette/Vaping Use: Currently Using Second Hand Smoke Exposure: Yes Substance Use Type: Marijuana service: No Current occupational status: employed Current occupation: [employer] Current occupational exposures/hazards: No Sexual orientation: Straight/Heterosexual Gender identity: Female Cognitive needs: No Hearing needs: No Vision needs: No Female Reproductive History Menstrual Age of Menarche: 9 Questionnaire PHQ-9 Over the last 2 weeks, how often have you been bothered by any of the following problems? 1. Little interest or pleasure in doing things: not at all 2. Feeling down, depressed, or hopeless: several days 3. Trouble falling or staying asleep, or sleeping too much: nearly every day 4. Feeling tired or having little energy: more than half the days 5. Poor appetite or overeating: several days 6. Feeling bad about yourself - or that you are a failure or have let yourself or your family down: several days 7. Trouble concentrating on things, such as reading the newspaper or watching television: several days 8. Moving or speaking so slowly that other people could have noticed. Or the opposite - being so fidgety or restless that you have been moving around a lot more than usual: not at all 9. Thoughts that you would be better off or of hurting yourself in some way: not at all Total score: 9 Depression Screening Interpretation: Positive Depression Screening Follow-up: Existing condition Depression Screening Done: Yes 86725 - PHQ-9 Billing: Yes Source: Developed by Drs. Brett Arevalo, Kinjal Johnson, David Collins and colleagues, with an educational cristóbal from [employer]. Thrive Questionnaire Date Thrive assessed: 09/08/25 I am a: Patient What is your living situation today?: I have a steady place to live Within the past 12 months, did the food you bought not last and you didn't have the money to get more?: Never true Within the past 12 months, did you worry whether your food would run out before you got money to buy more?: Never true Do you have trouble paying for medicines?: No Do you have trouble getting transportation to medical appointments?: No Do you have trouble paying your heating and electricity bill?: No Do you have trouble taking care of your child, family member or friend?: No Do you have trouble with day-to-day activities such as bathing, preparing meals, shopping, managing finances, etc.?: No Are you currently unemployed and looking for a job?: No Are you interested in more education?: Yes Please select the resources that you would like help with: None Currently or been in a relationship where the following occur: No concerns reported THRIVE Score: 0 AUDIT C Alcohol Use Questionnaire (AUDIT-C) 1. How often do you have a drink containing alcohol?: 2-3 times a week 2. How many drinks containing alcohol do you have on a typical day when you are drinking?: 3 or 4 3. How often do you have six or more drinks on one occasion?: Less than monthly Total Score: 5 ANGELICA-7 AMB Questionnaire ANGELICA-7 Date ANGELICA - 7 assessed: 09/08/25 Feeling nervous, anxious, or on edge: 1 = Several days Not being able to stop or control worryin = Several days Worrying too much about different things: 1 = Several days Trouble relaxin = Several days Being so restless that it is hard to sit still: 1 = Several days Becoming easily annoyed or irritable: 2 = More than half the days Feeling afraid as if something awful might happen: 0 = Not at all Total ANGELICA-7 score (0-4 normal; 5-9 mild; 10-14 moderate; 15-21 severe): 7 Source: Developed by Drs. Brett Arevalo, Kinjal Johnson, David Collins and colleagues, with an educational cristóbal from [employer]. ANGELICA-7 Assessment Billing ANGELICA-7 Assessment Tool: ANGELICA-7 Assessment 47012 Physical exam (Primary Care) Vital Signs: Last Vital Signs Temp 97.3 F 09/08/25 16:18 Pulse 92 09/08/25 16:18 BP 88/60 L 09/08/25 16:18 Pulse Ox 100 09/08/25 16:18 Oxygen Delivery Method Room Air 09/08/25 16:18 BMI result Body Mass Index 31.9 BMI Assessment/Plan discussion: High BMI High, discussed plan: lifestyle, weight reduction, dietary and physical activity Tobacco/Smoking Status: Tobacco use Status Tobacco use date assessed 09/08/25 09/08/25 16:29 Patient Tobacco Use Status Former Tobacco user 09/08/25 16:29 Tobacco use type Smokeless Tobacco 09/08/25 16:29 e-Cigarette/Vaping Use Currently Using 09/08/25 16:29 Are you ready to quit: Yes Tobacco cessation counseling provided: Yes Items discussed: Nicotine replacement Relapse Prevention: discussed the importance of a supportive environment, discussed negative mood or depression after quitting, weight gain after smoking is common and discussed dietary, exercise and/or lifestyle changes Number of minutes spent counselin CPT code: 20396 - 4-10 Minutes PHQ-9: PHQ-9 Score PHQ-9: Total score 9 09/08/25 16:47 Depression Screening Interpretation: Positive Depression Screening Follow-up: Existing condition Thrive Assessment: Date of Thrive Assessment Date Thrive assessed 09/08/25 09/08/25 16:29 Currently or been in a relationship where the following occur: No concerns reported Coding Level of Care Code Est Pt Prev Care 40-64y(27990) Diagnoses Annual physical exam Z00.00 Perimenopause N95.1 Class 1 obesity E66.9 MDD (major depressive disorder), recurrent episode, mild F33.0 ADHD (attention deficit hyperactivity disorder), inattentive type F90.0 Electronic cigarette use Z78.9 Additional Codes PHQ-9 - 52242 - PHQ-9 Billing: Yes ([id number]) ANGELICA-7 Assessment Billing - ANGELICA-7 Assessment Tool: ANGELICA-7 Assessment 85903 ([id number]) Vital Signs *Quality* - CPT code: 54206 - 4-10 Minutes ([id number]) Assessment & Plan Assessment & Plan (1) Annual physical exam: Code(s): Z00.00 - Encounter for general adult medical examination without abnormal findings Category: Medical Plan: as per HPI (2) Perimenopause: Code(s): N95.1 - Menopausal and female climacteric states Category: Medical Plan: I discussed the patient's request for hormone replacement therapy (HRT) to manage her severe perimenopausal symptoms, which include hot flashes, irritability, and sleep disturbance. I explained that while this is not an area I typically manage, we can trial an estradiol patch. I informed her about treatment options including pills and patches, and we selected a weekly estradiol 0.025 mg patch based on her preference for less frequent dosing. I conducted a thorough risk/benefit discussion, emphasizing the significant increased risk of blood clots when combining estrogen therapy with smoking or vaping. I also noted that her existing Mirena IUD provides the necessary progesterone to protect her uterus from unopposed estrogen. The patient acknowledged the risks and agreed to quit vaping cold turkey to mitigate the danger. We agreed to a follow-up in approximately 8 weeks to assess her response to the medication and her success with smoking cessation. (3) Class 1 obesity: Code(s): E66.9 - Obesity, unspecified Category: Medical Plan: Patient does understand her BMI is over 30 will work on being more physically active and adapting to better eating habits to reduce her weight. She attributes her inability to reduce her weight to perimenopausal symptoms. (4) MDD (major depressive disorder), recurrent episode, mild: Code(s): F33.0 - Major depressive disorder, recurrent, mild Category: Medical Plan: Patient's PHQ-9 score positive for depression which has been existing condition for her. She is not interested in mental health medications at this time. (5) ADHD (attention deficit hyperactivity disorder), inattentive type: Code(s): F90.0 - Attention-deficit hyperactivity disorder, predominantly inattentive type Category: Medical Plan: Patient doing quite well without medication for her ADD symptoms. 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 The patient verbalized understanding of the risks and agreed to quit vaping cold turkey. Orders: Orders Complete Blood Count no Diff 09/08/25 Z13.1 - Encounter for screening for diabetes mellitus Follicle Stimulating Hormone 09/08/25 N95.1 - Menopausal and female climacteric states Comprehensive [place]. Panel Fast 09/08/25 Z13.1 - Encounter for screening for diabetes mellitus Medications: New estradiol (Minivelle) 1 patch transdermal .weekly 8 ea 0RF 8 weeks N95.1 - Menopausal and female climacteric states
[2025-09-08 16:18] VITALS: BP 88/60; PULSE 92; TEMP 36.3; O2SAT 100; BMI 31.9
== END 2025-09-08 17:16 | disposition home or self-care (01) ==
LOC: HO.HMCH 16:06
PROVIDERS: PCP Physician Assistant; Visit Provider Physician Assistant
DX: Z00.00 Encounter for general adult medical examination without abnormal findings (principal); N95.1 Menopausal and female climacteric states; E66.9 Obesity, unspecified; Z68.31 Body mass index [BMI] 31.0-31.9, adult; F33.0 Major depressive disorder, recurrent, mild; F90.0 Attention-deficit hyperactivity disorder, predominantly inattentive type; Z78.9 Other specified health status; F17.299 Nicotine dependence, other tobacco product, with unspecified nicotine-induced disorders

== ENCOUNTER → 2025-09-08 16:05 | Outpatient (BNVA) | payer BC, SELFPAY | PROVIDERS: PCP Physician Assistant; Visit Provider Physician Assistant | DX: Z00.00 Encounter for general adult medical examination without abnormal findings (principal); K76.0 Fatty (change of) liver, not elsewhere classified; K21.9 Gastro-esophageal reflux disease without esophagitis; F90.9 Attention-deficit hyperactivity disorder, unspecified type; N95.1 Menopausal and female climacteric states; E66.9 Obesity, unspecified; F33.0 Major depressive disorder, recurrent, mild; F90.0 Attention-deficit hyperactivity disorder, predominantly inattentive type; Z78.9 Other specified health status; Z68.31 Body mass index [BMI] 31.0-31.9, adult | CPT/HCPCS: 96127 ==

== ENCOUNTER 2025-09-12 10:12 | Outpatient (REF) | payer BC, SELFPAY ==
[2025-09-12 10:46] LABS: Hematocrit 41.6 % (37.0-47.0); Hemoglobin 13.8 g/dl (12.0-16.0); Mean Corpuscular HGB Conc 33.2 g/dl (31.0-35.0); Mean Corpuscular Hemoglobin 31.0 pg (27.0-33.0); Mean Corpuscular Volume 93.5 fL (80.0-98.0); NRBC Abs Auto 0.000 X10*3/uL (0.0-0.012); NRBC Pct Auto 0.0 /100WBC (0.0-0.2); Platelet Count 261 X10*3/uL (160-400); Red Blood Count 4.45 X10*6/uL (4.20-5.50); White Blood Count 4.9 X10*3/uL (4.8-10.8)
[2025-09-12 11:25] LABS: Alanine Aminotransferase 25 U/L (0-31); Albumin Level 4.4 g/dL (3.5-5.0); Alkaline Phosphatase 64 U/L (39-117); Anion Gap 10 (12-20); Aspartate Amino Transferase 29 U/L (5-31); Blood Urea Nitrogen 11 mg/dL (9-16); Calcium 9.4 mg/dL (8.4-10.2); Carbon Dioxide 25 mmol/L (22-29); Chloride 108 mmol/L (96-108); Estimated Glomerular Filt Rate > 60; Potassium 4.2 mmol/L (3.3-5.1); Sodium 139 mmol/L (135-145); Total Protein 7.3 g/dL (6.5-8.0)
[2025-09-13 02:32] LABS: Follicle Stimulating Hormone 12.1 mIU/mL
== END 2025-09-12 10:13 | disposition home or self-care (01) ==
LOC: HO.LAB 10:12
PROVIDERS: PCP Physician Assistant; Visit Provider Physician Assistant
DX: Z13.1 Encounter for screening for diabetes mellitus (principal); N95.1 Menopausal and female climacteric states
CPT/HCPCS: 36415; 80053; 83001; 85027

== ENCOUNTER 2025-11-03 10:58 | Outpatient (AMB) | payer BC, SELFPAY ==
[2025-11-03 11:01] VITALS: BP 80/58; PULSE 71; O2SAT 99; BMI 32.4
--- NOTE | 2025-11-03 11:01 | A.OFFPC_ITS ---
Vital Signs 11/03/25 11:01 Height 5 ft Weight 166 lb BMI 32.4 BP 80/58 L Blood Pressure Location Lt brachial Position Sitting Pulse 71 Pulse Source Pulse Oximeter Pulse Oximetry (%) 99 Oxygen Delivery Method Room Air Intake Visit Reasons: f/u ( menapausal symptoms ) Apprenticeship Consultant Required: No Accompanied by: Self / Same As Patient Allergies No Known Allergies (No Known Allergies*) Allergy (Verified 11/03/25 11:11) Medication List - Last Reconciled 11/03/25 by Andrea Samayoa PA-C estradiol 1 patch transdermal QWEEK 4 weeks levonorgestrel (Mirena) 1 device intrauterine CONT Tobacco use date assessed: 11/03/25 Dental Screening Dental Screen Date: 11/03/25 Did you have a dental visit in the last 12 months?: No Did you have a dental problem in the last 6 months where you did not have access to dental care?: No Was dental information given to patient?: Patient has dentist HPI f/u ( menapausal symptoms ) HPI Details The patient is a 40 year old female presenting for a follow-up on her perimenopausal symptoms. She was previously experiencing symptoms including mood swings, hot flashes, and itchy skin. Her hot flashes were severe enough to cause nausea and vomiting. She was started on transdermal hormone therapy to manage these symptoms. Since starting the therapy, she reports her sleep has gotten slightly better and the severe hot flashes with nausea have resolved, though she still feels hot at times. She continues to experience irritability, mood swings, and itchy ears and skin. She has also noticed thicker hair growth on her toe. Past medical history is notable for a lifelong history of low blood pressure. She is trying to reduce her smoking. Recent lab work from a few months ago showed normal kidney and liver function, a fasting blood sugar of 95, and normal blood counts. [facility] Medical History GERD (gastroesophageal reflux disease) Fatty liver Vapes nicotine containing substance Migraine Depression ADHD Dysplasia of cervix, low grade (DES 1) Surgical History H/O LEEP History of section History of knee surgery History of ankle surgery Family History Father Cirrhosis Substance use disorder Mother Ovarian cancer Diabetes Mental health disorder Maternal Grandmother Heart disease CVD (cardiovascular disease) Maternal Aunt Breast cancer Social History Household Members: Spouse and Children Housing: House Alcohol intake: current Alcohol intake frequency: a few times a week Alcohol type: beer and wine Patient Tobacco Use Status: Former Tobacco user Tobacco use type: Smokeless Tobacco Years Smoked: 20 e-Cigarette/Vaping Use: Currently Using Second Hand Smoke Exposure: Yes Substance Use Type: Marijuana service: No Current occupational status: employed Current occupation: [employer] Current occupational exposures/hazards: No Sexual orientation: Straight/Heterosexual Gender identity: Female Cognitive needs: No Hearing needs: No Vision needs: No Female Reproductive History Menstrual Age of Menarche: 9 Questionnaire PHQ-9 Over the last 2 weeks, how often have you been bothered by any of the following problems? 1. Little interest or pleasure in doing things: not at all 2. Feeling down, depressed, or hopeless: several days 3. Trouble falling or staying asleep, or sleeping too much: nearly every day 4. Feeling tired or having little energy: more than half the days 5. Poor appetite or overeating: several days 6. Feeling bad about yourself - or that you are a failure or have let yourself or your family down: several days 7. Trouble concentrating on things, such as reading the newspaper or watching television: several days 8. Moving or speaking so slowly that other people could have noticed. Or the opposite - being so fidgety or restless that you have been moving around a lot more than usual: not at all 9. Thoughts that you would be better off or of hurting yourself in some way: not at all Total score: 9 Depression Screening Interpretation: Positive Depression Screening Follow-up: Existing condition Depression Screening Done: Yes 17650 - PHQ-9 Billing: Yes Source: Developed by Drs. Brett Arevalo, Kinjal Johnson, David Collins and colleagues, with an educational cristóbal from [employer]. Thrive Questionnaire Date Thrive assessed: 11/03/25 I am a: Patient What is your living situation today?: I have a steady place to live Within the past 12 months, did the food you bought not last and you didn't have the money to get more?: Never true Within the past 12 months, did you worry whether your food would run out before you got money to buy more?: Never true Do you have trouble paying for medicines?: No Do you have trouble getting transportation to medical appointments?: No Do you have trouble paying your heating and electricity bill?: No Do you have trouble taking care of your child, family member or friend?: No Do you have trouble with day-to-day activities such as bathing, preparing meals, shopping, managing finances, etc.?: No Are you currently unemployed and looking for a job?: No Are you interested in more education?: Yes Currently or been in a relationship where the following occur: No concerns reported THRIVE Score: 0 AUDIT C Alcohol Use Questionnaire (AUDIT-C) 1. How often do you have a drink containing alcohol?: 2-3 times a week 2. How many drinks containing alcohol do you have on a typical day when you are drinking?: 3 or 4 3. How often do you have six or more drinks on one occasion?: Less than monthly Total Score: 5 ANGELICA-7 AMB Questionnaire ANGELICA-7 Date ANGELICA - 7 assessed: 11/03/25 Feeling nervous, anxious, or on edge: 1 = Several days Not being able to stop or control worryin = Several days Worrying too much about different things: 1 = Several days Trouble relaxin = Several days Being so restless that it is hard to sit still: 1 = Several days Becoming easily annoyed or irritable: 2 = More than half the days Feeling afraid as if something awful might happen: 0 = Not at all Total ANGELICA-7 score (0-4 normal; 5-9 mild; 10-14 moderate; 15-21 severe): 7 Source: Developed by Drs. Brett Arevalo, Knijal Johnson, David Collins and colleagues, with an educational cristóbal from [employer]. ANGELICA-7 Assessment Billing ANGELICA-7 Assessment Tool: ANGELICA-7 Assessment 60372 Review of Systems Const Denies headache(s) Eyes Denies loss of vision ENT Denies vertigo, Denies dizziness, Denies headache(s) and Denies sore throat Card Denies chest pain, Denies leg edema and Denies lightheadedness Resp Denies cough, Denies hemoptysis and Denies wheezing GI Denies abdominal pain, Denies melena, Denies constipation, Denies diarrhea and Denies vomiting Denies urinary frequency, Denies dysuria and Denies urinary urgency Musc Denies arthralgias, Denies joint swelling, Denies numbness and Denies tingling Neuro Denies Abnormal speech present, Denies behavioral changes, Denies vertigo, Denies dizziness, Denies headache(s), Denies loss of vision, Denies memory loss, Denies numbness and Denies tingling Psych Denies anxiety, Denies behavioral changes, Denies depression, Denies memory loss and Denies panic attacks [place]/Lymph Denies easy bleeding and Denies easy bruising Aller/Immun Denies wheezing Physical exam (Primary Care) Vital Signs: Last Vital Signs Pulse 71 11/03/25 11:01 BP 80/58 L 11/03/25 11:01 Pulse Ox 99 11/03/25 11:01 Oxygen Delivery Method Room Air 11/03/25 11:01 BMI result Body Mass Index 32.4 Tobacco/Smoking Status: Tobacco use Status Tobacco use date assessed 11/03/25 11/03/25 11:05 Patient Tobacco Use Status Former Tobacco user 11/03/25 11:05 Tobacco use type Smokeless Tobacco 11/03/25 11:05 e-Cigarette/Vaping Use Currently Using 11/03/25 11:05 PHQ-9: PHQ-9 Score PHQ-9: Total score 9 11/03/25 11:05 Depression Screening Interpretation: Positive Depression Screening Follow-up: Existing condition Thrive Assessment: Date of Thrive Assessment Date Thrive assessed 11/03/25 11/03/25 11:05 Currently or been in a relationship where the following occur: No concerns reported Const General: healthy appearing, no acute distress, alert and awake Nutritional Appearance: well nourished Orientation/consciousness: oriented to person, oriented to place and oriented to time HENMT Ears: TM's normal bilaterally General nose exam: Normal nasal mucous membranes and turbinates present Eyes Conjunctivae: conjunctivae normal Sclerae: sclerae normal Pupils: Equal, round and reactive pupils present Neck Neck: Yes no lymphadenopathy and Yes no JVD Thyroid: Thyroid normal Carotids: no bruits Resp Effort & Inspection: normal respiratory effort and not tachypneic Auscultation: no crackles, no rales, no rhonchi and no wheezes Cardio Rate: regular rate Rhythm: regular rhythm Heart sounds: no murmurs and normal S1 and S2 GI Palpation (GI): Soft to palpation, nontender, no hepatomegaly and no splenomegaly Auscultation: normal bowel sounds Skin General skin exam: no rashes or lesions noted and dry skin Neuro General: oriented to person, oriented to place and oriented to time Cranial nerves: Yes Equal, round and reactive pupils present Speech: No Abnormal speech present Gait exam (Neuro): Normal gait present Motor exam (neuro): no tremor noted Extrem Right upper extremity: full ROM Left upper extremity: full ROM Right lower extremity: full ROM; no edema Left lower extremity: full ROM; no edema Psych Mental Status: mental status grossly normal Speech and movement: Normal speech and movement present Affect: normal affect Attitude: cooperative Thought process: Normal thought process present Coding Level of Care Code Est Pt Level 4 (11926) Diagnoses Perimenopause N95.1 Additional Codes ANGELICA-7 Assessment Billing - ANGELICA-7 Assessment Tool: ANGELICA-7 Assessment 46758 ([id number]) PHQ-9 - 19687 - PHQ-9 Billing: Yes ([id number]) Assessment & Plan Assessment & Plan (1) Perimenopause: Code(s): N95.1 - Menopausal and female climacteric states Category: Medical Plan: For perimenopausal syndrome, the current hormone therapy will be continued as it has shown significant benefit in resolving her severe hot flashes and associated nausea. To address the persistent symptoms of irritability and mood swings, the patient may add [id number] black cohosh. Again I did warned her about the use hormonal therapy and smoking and she promised me she has drastically reduced her smoking.. Additionally, options for antidepressant medications, specifically fluoxetine and paroxetine, were discussed to help with mood regulation, and the patient may elect to start one by messaging through the patient portal.
== END 2025-11-03 11:23 | disposition home or self-care (01) ==
LOC: HO.HMCH 11:00
PROVIDERS: PCP Physician Assistant; Visit Provider Physician Assistant
DX: N95.1 Menopausal and female climacteric states (principal)

== ENCOUNTER → 2025-11-03 10:58 | Outpatient (BNVA) | payer BC, SELFPAY | PROVIDERS: PCP Physician Assistant; Visit Provider Physician Assistant | DX: Z13.31 Encounter for screening for depression (principal); Z13.39 Encounter for screening examination for other mental health and behavioral disorders | CPT/HCPCS: 96127 ==